=== PATIENT | female | born 1950 | race Caucasian/White ===

== ENCOUNTER 2023-06-18 15:52 | Emergency (ER) | payer MEDICARE, MEDICAID, SELFPAY ==
[2023-06-18 15:56] VITALS: BP 198/82; PULSE 69; RESP 8; TEMP 36.3; O2SAT 96; BMI 24.6
--- NOTE | 2023-06-18 16:31 | CRLHL7_ITS ---
For Patients: As a result of the Century Cures Act, medical imaging exams and procedure reports are released immediately into your electronic medical record. You may view this report before your referring provider. If you have questions, please contact your health care provider. INDICATION: Right upper quadrant abdomen pain. TECHNIQUE: Ultrasound abdomen limited. Sonographic images of the right upper quadrant were obtained using felder-scale and color Doppler images. COMPARISON: Chest CT September 2020. FINDINGS: Liver: Normal in size and echotexture. No intrahepatic biliary dilatation. Gallbladder: No stones or sludge. Partially contracted. Normal wall thickness. No pericholecystic fluid. Common bile duct: 4 mm. Pancreas: Unremarkable where visualized. Right kidney: Normal in size. Normal echotexture and cortex. No shadowing stones, or hydronephrosis. Vasculature: Proximal abdominal aorta and IVC are unremarkable. IMPRESSION: Unremarkable right upper quadrant ultrasound. Dictated by Richard Greenwood MD @ 06/18/2023 5:51:22 PM (Electronically Signed)
--- NOTE | 2023-06-18 16:32 | ED.GENADULT ---
HPI - General Adult General Chief complaint: Rib Pain Stated complaint: Under the rib pain Time Seen by Provider: 06/18/23 15:54 History of Present Illness HPI narrative: This 72-year-old female comes in reporting pain in her right upper quadrant. She states that this pain began almost about a week ago and 5 days ago she went into a different emergency department where a CT scan of the abdomen and pelvis was completed. She was found to have appendicitis and had her appendix removed at [facility] 5 days ago. She states that the pain in her right upper quadrant resumed about 3 days ago. She does not report any injury event or strenuous activity. She does not have any shortness of breath, nausea, vomiting, fever, or diarrhea. She last ate a meal last evening. Related Data Home Medications Medication Instructions Recorded Confirmed atenolol 50 mg tablet 50 mg PO BID 06/18/23 06/18/23 Allergies Allergy/AdvReac Type Severity Reaction Status Date / Time bupropion [From Wellbutrin] Allergy Verified 06/18/23 16:03 celecoxib [From Celebrex] Allergy Verified 06/18/23 16:03 cerivastatin [From Baycol] Allergy Verified 06/18/23 16:03 citalopram [From Celexa] Allergy Verified 06/18/23 16:03 enalapril Allergy Verified 06/18/23 16:03 glucosamine Allergy Verified 06/18/23 16:03 ibuprofen Allergy Verified 06/18/23 16:00 lisinopril Allergy Verified 06/18/23 16:03 simvastatin [From Zocor] Allergy Verified 06/18/23 16:03 Review of Systems Status of ROS: Reports: 10 or more systems reviewed and unremarkable except as noted in History and below Narrative: Constitutional: No fevers, no weight gain or loss. Eyes: No discharge. No vision changes. HENT: No congestion, no sore throat, no ear pain. 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 Cardiovascular: No chest pain, no palpitations. Respiratory: No shortness of breath, no wheezes, no cough. Gastrointestinal: No vomiting, no diarrhea. Genitourinary: No dysuria, no hematuria. Musculoskeletal: Normal range of motion. Skin: No rashes, no pruritis. Neurological: No dizziness, weakness, sensory change, speech change. Endo/Heme/Allergies: No bruising or bleeding. No polydipsia. Pysch: no suicidality, no anxiety, no insomnia. All other systems reviewed and are negative. Exam Narrative: Exam Narrative: Constitutional: Well-developed, well-nourished, no acute distress. HEENT: Normocephalic, atraumatic. Neck: Normal range of motion. Nontender. Supple. Heart: Regular. No murmurs. Normal rate. Intact distal pulses. Lungs: Clear to auscultation. No chest discomfort. No wheezes, rhonchi, or rales. Abdomen: Normal bowel sounds. Tenderness when palpating in the right upper quadrant. No rebound tenderness. Genitalia: Deferred. Back: No midline tenderness. Normal range of motion. Extremities: Normal range of motion. No injury. Skin: Intact. No rash. Warm. No erythema or pallor. Neurologic: No altered sensation. No weakness. Alert and oriented. Psychiatric: No suicidality. No anxiety or depression. No insomnia. Nursing notes and vitals signs are reviewed. Const: Vital Signs, click to edit/add: Vital Signs - 24 hr 06/18/23 15:56 Temperature 97.3 F L Pulse Rate [Right Pulse Oximeter] 69 Respiratory Rate 8 L Blood Pressure [Ri ght Upper Arm] 198/82 H Pulse Oximetry 96 Oxygen Delivery Me thod Room Air Course Vital Signs Vital signs: Initial Vital Signs Temperature 97.3 F L 06/18/23 15:56 Temperature Source Temporal Artery Scan 06/18/23 15:56 Pulse Rate 69 06/18/23 15:56 Respiratory Rate 8 L 06/18/23 15:56 Blood Pressure 198/82 H 06/18/23 15:56 Blood Pressure Mean 120 H 06/18/23 15:56 Blood Pressure Position Sitting 06/18/23 15:56 Pulse Oximetry 96 06/18/23 15:56 Oxygen Delivery Method Room Air 06/18/23 15:56 Vital Signs Temperature 97.3 F L 06/18/23 15:56 Pulse Rate 69 06/18/23 15:56 Respiratory Rate 8 L 06/18/23 15:56 Blood Pressure 198/82 H 06/18/23 15:56 Pulse Oximetry 96 06/18/23 15:56 Oxygen Delivery Method Room Air 06/18/23 15:56 Temperature 97.3 F L 06/18/23 15:56 Pulse Rate 69 06/18/23 15:56 Respiratory Rate 8 L 06/18/23 15:56 Blood Pressure 198/82 H 06/18/23 15:56 Pulse Oximetry 96 06/18/23 15:56 Oxygen Delivery Method Room Air 06/18/23 15:56 Medical Decision Making MDM Narrative Medical decision making narrative: This patient did have an appendectomy about 5 days ago and comes in reporting some right upper quadrant pain that is reproducible when moving in certain positions. She does not have any fever or abnormal vital signs. Her blood pressure is elevated currently. She had a CT scan within the last week with normal findings other than the evidence of appendicitis. She states that her last meal was last evening. I attempted a bedside ultrasound view of her gallbladder which for me was a difficult time finding the gallbladder. I then had the restrike hammer operator perform the same study and she reports that it was rather contracted and near a gas bubble in a bowel. There is no sign of abnormality on ultrasound exam. This patient's symptoms are likely musculoskeletal or possibly pain related to her bowels. I did offer further studies including lab and imaging. The patient recently had these studies with negative findings other than the appendicitis. She declined any further study at this time. She is aware of signs or symptoms that would indicate a need for return and re-evaluation. Discharge Plan Discharge Clinical Impression: Abdominal pain Patient Disposition: Home, Self-Care Condition: Unchanged Additional Instructions: continue current plans. Use pain medicine as needed and directed. Activity as tolerated. Follow up with MD or return if symptoms are worsening. Prescriptions: No Action atenolol 50 mg tablet 50 mg PO BID Follow Up/Referrals: Soumya Qauch DO [Primary Care Provider] - Stand Alone Forms: [employer] Info Instructions
[2023-06-18 17:29] VITALS: BP 196/105; PULSE 72; RESP 20
== END 2023-06-18 17:30 | disposition home or self-care (01) ==
LOC: ED 17:16
PROVIDERS: Emergency Provider Emergency Medicine Emergency Medical Services; PCP Family Medicine
DX: R10.11 Right upper quadrant pain (principal)
CPT/HCPCS: 76705; 99283; 99284

== ENCOUNTER 2023-10-19 11:44 | Outpatient (CLI) | payer MEDICARE, MEDICAID, SELFPAY | END 2023-10-19 11:45 | disposition home or self-care (01) | LOC: AMB 10-21 09:29 | PROVIDERS: PCP Family Medicine; Visit Provider Family Medicine | DX: I48.91 Unspecified atrial fibrillation (principal); R06.09 Other forms of dyspnea | CPT/HCPCS: A0425; A0427 ==

== ENCOUNTER 2023-11-21 21:20 | Outpatient (CLI) | payer MEDICARE, MEDICAID, SELFPAY | END 2023-11-21 21:21 | disposition home or self-care (01) | LOC: AMB 11-23 10:56 | PROVIDERS: PCP Family Medicine; Visit Provider Family Medicine | DX: R10.9 Unspecified abdominal pain (principal) | CPT/HCPCS: A0425; A0427 ==

== ENCOUNTER 2023-12-01 11:21 | Emergency (ER) | payer MEDICARE, MEDICAID, SELFPAY ==
[2023-12-01 11:27] VITALS: BP 168/84; PULSE 82; RESP 20; TEMP 36.6; O2SAT 97
--- NOTE | 2023-12-01 11:48 | CRLHL7_ITS ---
For Patients: As a result of the Century Cures Act, medical imaging exams and procedure reports are released immediately into your electronic medical record. You may view this report before your referring provider. If you have questions, please contact your health care provider. INDICATION: COUGH TECHNIQUE: Chest 2 views. COMPARISON: Chest radiograph report on 11/21/2023 and multiple prior exams FINDINGS: The cardiomediastinal silhouette is within normal limits. No focal airspace consolidation, pleural effusion, or pneumothorax. No acute osseous abnormality. IMPRESSION: No acute cardiopulmonary process. Dictated by Chris Hillman MD @ 12/01/2023 12:44:45 PM (Electronically Signed)
--- NOTE | 2023-12-01 11:49 | ED.GENADULT ---
HPI - General Adult General Chief complaint: Shortness of Breath/Dyspnea Stated complaint: Bronchitis, Covid likely, short of breath Time Seen by Provider: 12/01/23 11:26 History of Present Illness HPI narrative: This 73-year-old female comes in reporting cough for the past 10 or more days. She did test positive for COVID about 10 days ago and did complete a 5 day course of prednisone. She comes in today stating that her clinic told her to come in here to get an x-ray so she can get an antibiotic. She arrives here with normal vital signs. She reports a productive cough. Related Data Home Medications Medication Instructions Recorded Confirmed apixaban 5 mg tablet (Eliquis) 5 mg PO BID 11/14/23 11/14/23 aspirin 81 mg tablet,delayed 81 mg PO QDAY 11/14/23 11/14/23 release (Adult Aspirin Regimen) carvedilol 12.5 mg tablet 12.5 mg PO BID 11/14/23 11/14/23 sotalol 80 mg tablet (Sotalol AF) 80 mg PO BID 11/14/23 11/14/23 torsemide 20 mg tablet 20 mg PO DAILY 11/14/23 11/14/23 Previous Rx's Medication Instructions Recorded azithromycin 250 mg tablet 250 mg PO DAILY #6 tabs 12/01/23 (Zithromax Z-Jose) Allergies Allergy/AdvReac Type Severity Reaction Status Date / Time bupropion [From Wellbutrin] Allergy Verified 11/14/23 09:46 celecoxib [From Celebrex] Allergy Verified 11/14/23 09:46 cerivastatin [From Baycol] Allergy Verified 11/14/23 09:46 citalopram [From Celexa] Allergy Verified 11/14/23 09:46 enalapril Allergy Verified 11/14/23 09:46 glucosamine Allergy Verified 11/14/23 09:46 ibuprofen Allergy Verified 11/14/23 09:46 lisinopril Allergy Verified 11/14/23 09:46 simvastatin [From Zocor] Allergy Verified 11/14/23 09:46 Review of Systems Status of ROS: Reports: 10 or more systems reviewed and unremarkable except as noted in History and below Narrative: Constitutional: No fevers, no weight gain or loss. Eyes: No discharge. No vision changes. HENT: No congestion, no sore throat, no ear pain. Cardiovascular: No chest pain, no palpitations. Respiratory: No shortness of breath, no wheezes. Productive cough. Gastrointestinal: No abdominal pain, no vomiting, no diarrhea. Genitourinary: No dysuria, no hematuria. Musculoskeletal: Normal range of motion. Skin: No rashes, no pruritis. Neurological: No dizziness, weakness, sensory change, speech change. Endo/Heme/Allergies: No bruising or bleeding. No polydipsia. Pysch: no suicidality, no anxiety, no insomnia. All other systems reviewed and are negative. PFSH PFS Social History Smoking Status: Former smoker What tobacco products do you use: cigarettes Smoking quit date/years: >15 years ago Do you use any of these nicotine containing products: None How often do you have a drink containing alcohol: never How often do you have six or more drinks on one occasion: Never AUDIT-C Alcohol total score: 0 Non-prescribed substance use: denies use Exam Narrative: Exam Narrative: Constitutional: Well-developed, well-nourished, no acute distress. HEENT: Normocephalic, atraumatic. Neck: Normal range of motion. Nontender. Supple. Heart: Regular. No murmurs. Normal rate. Intact distal pulses. Lungs: Clear to auscultation. No chest discomfort. No wheezes, rhonchi, or rales. Abdomen: Normal bowel sounds. Nontender. No rebound tenderness. Genitalia: Deferred. Back: No midline tenderness. Normal range of motion. Extremities: Normal range of motion. No injury. Skin: Intact. No rash. Warm. No erythema or pallor. Neurologic: No altered sensation. No weakness. Alert and oriented. Psychiatric: No suicidality. No anxiety or depression. No insomnia. Nursing notes and vitals signs are reviewed. Const: Vital Signs, click to edit/add: Vital Signs - 24 hr 12/01/23 11:27 Temperature 97.8 F Pulse Rate [Pulse Oximeter] 82 Respiratory Rate 20 Blood Pressure [Ri ght Upper Arm] 168/84 H Pulse Oximetry 97 Oxygen Delivery Me thod Room Air Course Vital Signs Vital signs: Initial Vital Signs Temperature 97.8 F 12/01/23 11:27 Temperature Source Temporal Artery Scan 12/01/23 11:27 Pulse Rate 82 12/01/23 11:27 Respiratory Rate 20 12/01/23 11:27 Blood Pressure 168/84 H 12/01/23 11:27 Blood Pressure Mean 112 H 12/01/23 11:27 Blood Pressure Position Sitting 12/01/23 11:27 Pulse Oximetry 97 12/01/23 11:27 Oxygen Delivery Method Room Air 12/01/23 11:27 Vital Signs Temperature 97.8 F 12/01/23 11:27 Pulse Rate 82 12/01/23 11:27 Respiratory Rate 20 12/01/23 11:27 Blood Pressure 168/84 H 12/01/23 11:27 Pulse Oximetry 97 12/01/23 11:27 Oxygen Delivery Method Room Air 12/01/23 11:27 Temperature 97.8 F 12/01/23 11:27 Pulse Rate 82 12/01/23 11:27 Respiratory Rate 20 12/01/23 11:27 Blood Pressure 168/84 H 12/01/23 11:27 Pulse Oximetry 97 12/01/23 11:27 Oxygen Delivery Method Room Air 12/01/23 11:27 Medical Decision Making MDM Narrative Medical decision making narrative: This 73-year-old female is had productive cough for more than a week and a half and comes in with high hopes that she would get an antibiotic. She arrives with normal vital signs. Her exam is also reassuring. I did do chest x-ray which returns with no evidence of acute pulmonary disease. I explained to her that her symptoms are likely due to a virus which does not respond to an antibiotic. She was positive for COVID 10 days ago. She is still thinking that an antibiotic is going to help her. I stated that we typically do not use an antibiotic for treating these symptoms but agreed to provide prescription for Zithromax. I advised her to use [id number] cough medicine. She states that she did take Mucinex DM and it did not help her. Imaging Data Chest x-ray: Radiologist's impression: No acute cardiopulmonary process. Discharge Plan Discharge Clinical Impression: Acute upper respiratory infection Patient Disposition: Home, Self-Care Condition: Stable Additional Instructions: Take medication as prescribed. Use [id number] medicines also as needed and directed. Follow up with MD return if worsening. Prescriptions: New azithromycin [Zithromax Z-Jose] 250 mg tablet 250 mg PO DAILY Qty: 6 0RF No Action carvedilol 12.5 mg tablet 12.5 mg PO BID torsemide 20 mg tablet 20 mg PO DAILY Eliquis 5 mg tablet 5 mg PO BID sotalol [Sotalol AF] 80 mg tablet 80 mg PO BID aspirin [Adult Aspirin Regimen] 81 mg tablet,delayed release (DR/EC) 81 mg PO QDAY Follow Up/Referrals: Soumya Quach DO [Primary Care Provider] - Stand Alone Forms: [facility] Info Instructions
--- NOTE | 2023-12-01 13:06 | ED.NURSE ---
Assumed care of pt @ 1300. Report received from previous nurse, Markos Gamez All questions answered.
== END 2023-12-01 13:29 | disposition home or self-care (01) ==
PROVIDERS: Emergency Provider Emergency Medicine Emergency Medical Services; PCP Family Medicine
DX: J06.9 Acute upper respiratory infection, unspecified (principal)
CPT/HCPCS: 71046; 99283; 99284

== ENCOUNTER 2023-12-24 08:30 | Outpatient (CLI) | payer MEDICARE, MEDICAID, SELFPAY | END 2023-12-24 08:31 | disposition home or self-care (01) | LOC: AMB 12-25 17:36 | PROVIDERS: PCP Family Medicine; Visit Provider Family Medicine | DX: I49.9 Cardiac arrhythmia, unspecified (principal) | CPT/HCPCS: A0425; A0427 ==

== ENCOUNTER 2024-10-20 14:36 | Outpatient (CLI) | payer MEDICARE, MEDICAID, SELFPAY | END 2024-10-20 14:37 | disposition home or self-care (01) | LOC: AMB 10-21 03:10 | PROVIDERS: PCP Family Medicine; Visit Provider Emergency Medicine Emergency Medical Services | DX: R10.9 Unspecified abdominal pain (principal); I49.9 Cardiac arrhythmia, unspecified; I48.91 Unspecified atrial fibrillation | CPT/HCPCS: A0425; A0427 ==

== ENCOUNTER 2025-01-09 21:34 | Outpatient (CLI) | payer MEDICARE, MEDICAID, SELFPAY | END 2025-01-09 21:35 | disposition home or self-care (01) | PROVIDERS: PCP Family Medicine; Visit Provider Emergency Medicine | DX: R06.09 Other forms of dyspnea (principal) | CPT/HCPCS: A0425; A0427 ==

== ENCOUNTER 2025-01-09 21:56 | Emergency (ER) | payer MEDICARE, MEDICAID, SELFPAY ==
--- OUTSIDE RECORDS SUMMARY | 2025-01-09 21:59 | XMS_ITS | Clinical Summary ---
Author Organization [facility] Address [address] [place] [address] Care Team Providers Care Property Management Supervisor Name Role Phone Soumya Quahc DO Primary Care Provider Dat Laura RN Unavailable [phone] Lauren Rodriguez RN Unavailable [phone] Alba Elizabeth PharmD Unavailable [phone] Allergies Active Allergy Reactions Criticality Noted Date Comments Amitriptyline 09/13/2008 Face numb and ringing in the ears, blurred vision Amlodipine Other - Describe In Comment Field 09/19/2019 bleeding gums. swollen feet. Celecoxib 07/20/2008 High blood pressure Cerivastatin *Unknown 06/18/2023 Citalopram *Unknown 06/18/2023 Enalapril *Unknown 06/18/2023 Glucosamine Chest Pain 12/03/2009 Ibuprofen Rash 06/18/2023 Lisinopril 08/23/2008 Rapid heartrate Etodolac causes blood in stools Hydroxychloroquine intolerance-causes abdominal cramps Bupropion Chest Pain Simvastatin intolerance-causes dizziness Medications melatonin 3 mg tablet Take 1 tablet by mouth at bedtime. 0 09/12/20 14 Active cyanocobalamin (VITAMIN B-12) 500 mcg tablet Take 2 tablets by mouth once daily. 0 03/19/20 20 Active ascorbic acid, vitamin C, (Vitamin C) 1,000 mg tablet Take 1,000 mg by mouth two times daily. Active [id number] sh Oil (Fish OiL) 1,000 mg (120 mg-180 mg) cap Take 1 Capsule by mouth once daily. Active Garlic (garlic oiL) 1,000 mg cap Take 1,000 mg by mouth two times daily. Active magnesium oxide 250 mg magnesium tablet Take 250 mg by mouth once daily. Active multivitamin (MVI) tablet Take 1 Tablet by mouth once daily. Active niacin 100 mg tablet Take 100 mg by mouth once daily. Active POTASSIUM-99 ORAL Take 3 Tablets by mouth once daily. Active vitamin e 400 unit capsule Take 400 units by mouth once daily. Active Zinc Sulfate 50 mg zinc (220 mg) tablet Take 220 mg by mouth once daily. Active Cranberry 400 mg capsule Take 1 Capsule by mouth once daily. Active folic acid 400 mcg tablet Take 3 Tablets (1,200 mcg) by mouth once daily. 11/25/19 24 Active calcium carbonate (Calcium 600) 600 mg calcium (1,500 mg) tablet Take 600 mg by mouth two times daily with meals. Active aspirin enteric coated (ECOTRIN) 325 mg tabletIndications: Osteoarthritis, unspecified osteoarthritis type, unspecified site Take 2 Tablets (650 mg) by mouth every 4 hours if needed for Pain. Takes 8 tablets total daily for her arthritis pain. Hold x 5 days post-pacemaker implant, ok to resume on 10/28/2024 10/28/20 24 Active torsemide (DEMADEX) 10 mg tabletIndications: Heart failure with preserved ejection fraction, unspecified HF chronicity (HC) Use daily as needed for weight gain >3 lbs in 24 hours or increased swelling or shortness of breath 90 Tablet 3 10/26/20 24 Active rOPINIRole (REQUIP) 0.25 mg tabletIndications: RLS (restless legs syndrome) Take 2 tablets in am and 1 tablet in afternoon and 2 tablets at bedtime. 360 Tablet 3 10/26/20 24 Active atenoloL (TENORMIN) 50 mg tabletIndications: HTN (hypertension) Take 1-2 Tablets (50-100 mg) by mouth once daily. 90 Tablet 12/12/19 25 Active losartan (COZAAR) 50 mg tabletIndications: Heart failure with preserved ejection fraction, unspecified HF chronicity (HC),HTN (hypertension) Take 1 Tablet (50 mg) by mouth once daily. 12/12/19 25 Active albuterol HFA (Proventil HFA) 90 mcg/actuation inhalerIndications :Cough, unspecified type,Shortness of breath,COVID-19,Ch ronic obstructive pulmonary disease, unspecified COPD type (HC) Inhale 2 Puffs by mouth 4 times daily if needed for Shortness Of Breath. 1 Each 12/21/19 25 Active magnesium glycinate, bulk, 10 % powd Take 1 of the 500 mg capsules by mouth at bedtime. 01/03/20 25 Active acetaminophen (Tylenol Extra Strength) 500 mg tablet Take 2 Tablets (1,000 mg) by mouth every 6 hours. Max acetaminophen dose: 4000mg in 24 hrs. 01/03/20 25 Active ferrous sulfate (Iron) 325 mg (65 mg iron) tablet Take 1 tablet by mouth twice weekly (every 3 days or so). 01/03/20 25 Active cholecalciferol (Vitamin D-3) 2,000 unit capsule Take 1 Capsule (2,000 units) by mouth once daily. 01/03/20 25 Active cholecalciferol (VITAMIN D) 1,000 unit capsule Take 1 capsule by mouth 2 times daily. 0 07/14/20 16 025 Disconti nued(*Me dication adjustme nt) albuterol HFA (Proventil HFA) 90 mcg/actuation inhalerIndications :Cough, unspecified type,Shortness of breath,COVID-19,Ch ronic obstructive pulmonary disease, unspecified COPD type (HC) Inhale 2 Puffs by mouth 4 times daily if needed for Shortness Of Breath. 1 Each 11/22/19 24 025 Disconti nued(Reo rder (E-cance l not sent)) ferrous sulfate, 65 mg elemental, (Iron) tablet Take 325 mg by mouth once daily with a meal. once a week 025 Disconti nued(*Me dication adjustme nt) acetaminophen (Tylenol Extra Strength) 500 mg tablet Take 500 mg by mouth every 6 hours if needed. Max acetaminophen dose: 4000mg in 24 hrs. 025 Disconti nued(*Me dication adjustme nt) apixaban (ELIQUIS) 5 mg tabletIndications: prevent thromboembolism in chronic atrial fibrillation Take 0.5 Tablets (2.5 mg) by mouth two times daily. 90 Tablet 3 07/25/20 24 025 Disconti nued(*Me d complete /Regimen complete /Level of care change) losartan (COZAAR) 50 mg tabletIndications: HTN (hypertension),Hea rt failure with preserved ejection fraction, unspecified HF chronicity (HC) Take 2 Tablets (100 mg) by mouth once daily. 180 Tablet 3 07/25/20 24 025 Disconti nued(*Me dication adjustme nt) carvediloL (COREG) 12.5 mg tabletIndications: Atrial fibrillation with RVR (HC) Take 1 Tablet (12.5 mg) by mouth two times daily. 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 03/28/2024 (HFpEF) heart failure with preserved ejection fr action 10/14/2023 Atrial fibrillation with RVR 10/08/2023 Primary osteoarthritis of right hip 06/26/2023 Acute appendicitis 06/14/2023 Kidney lesion, napaimute, right 06/14/2023 Stress incontinence, female 03/02/2023 Balance problem 10/07/2019 Squamous cell cancer of tongue 11/08/2018 Leukoplakia of tongue 07/17/2016 Gout, unspecified 08/28/2011 Overview (09/08/2013): Right great toe Facial twitching 08/28/2011 Tobacco use disorder 12/03/2009 Major depressive disorder, recurrent episode, un specified 07/20/2008 Generalized osteoarthrosis, unspecified site 02/2008 Overview (09/08/2013): every where Assessment & Plan (08/02/2009 1:51 PM CDT): Currently on disability due to thumb arthritis HTN (hypertension) 07/20/2008 Overview (01/29/2010): Updated by system to replace inactive record Other and unspecified hyperlipidemia Lichen planus Overview (08/30/2009): Biopsy proven prednisdone helped better Resolved Problems Problem Noted Date Diagnosed Date Resolved Date Unspecified essential hypertension 10/18/2008 Encounters Date Type Department Care Team Description 01/04/2025 3:00 PM CDL DEDICATED TRUCK DRIVER Ancillary Procedure [facility] [address] [place] [address] Arrived 01/04/2025 2:30 PM CDL DEDICATED TRUCK DRIVER Ancillary Procedure [facility] [address] [place] [address] Arrived 01/04/2025 Travel 01/03/2025 2:00 PM CDL DEDICATED TRUCK DRIVER Pharmacist Medication Management [address] [place] [address] Alba Elizabeth, CedricD Pharmacist Medication Management (Initial Comprehensive Medication Review - Phone Visit ) 12/12/2024 3:05 PM CDL DEDICATED TRUCK DRIVER Office Visit [facility] [address] [place] [address] Soumya Quach DO Medication Management (eliquis, carvedilol, losartan ) 12/12/2024 1:00 PM CDL DEDICATED TRUCK DRIVER Ancillary Procedure [address] [address] 12/12/2024 Travel 12/08/2024 2:50 PM CDL DEDICATED TRUCK DRIVER Telemedicine [facility] [address] [place] [phone] Lauren Patel NP Side Effect; Telehealth 12/08/2024 Travel 12/07/2024 Travel 12/05/2024 Patient Outreach [facility] Care Management - Care Management Navigation/[facility] [address] [place] [address] Judy Maynard Medication Management (CMR - Covered - ACO) 11/18/2024 Telephone [facility] [address] [place] [address] Ling Thayer DO Medication Management 11/17/2024 Telephone [facility] [address] [place] [address] Soumya Quach DO Outside Order (CT) 11/15/2024 Telephone [facility] [address] [place] [address] Ling Thayer DO clarify 11/11/2024 1:00 PM CDL DEDICATED TRUCK DRIVER Ancillary Procedure [facility] [address] [place] [address] 11/11/2024 12:45 PM CDL DEDICATED TRUCK DRIVER Orders Only [facility] [address] [place] [address] Lab, [facility] 11/11/2024 Travel 10/26/2024 11:00 AM CDL DEDICATED TRUCK DRIVER Office Visit [facility] [address] [place] [address] Ling Thayer DO Hospital F/U (A-fib RVR, pacemaker placed - continues to have weakness/fatigue) 10/26/2024 Travel 10/24/2024 Patient Outreach [facility] [address] [place] [address] Kate Schwartz, RN Primary RN Care Management; Hospital F/U (LACE 69) 10/22/2024 9:39 AM CDL DEDICATED TRUCK DRIVER Anesthesia Event [facility] [address] [place] [id number] Pedro Schultz MD 10/22/2024 Travel 10/20/2024 3:48 PM CDL DEDICATED TRUCK DRIVER - 10/23/2024 4:05 PM CDL DEDICATED TRUCK DRIVER Hospital Encounter [facility] [address] [address] Haely Collins MD [facility] [place] Hospital[facility] Of [facility], RAFFAELE Bhatti Hand, Wen Claudio MD Atrial flutter with rapid ventricular response (HC) (Primary Dx); Paroxysmal ventricular tachycardia (HC); Acute on chronic heart failure with preserved ejection fraction (HFpEF) (HC); Shortness of breath; Epigastric pain; Nausea; Cough, unspecified type; Squamous cell cancer of tongue (HC); 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 neck (HC); HTN (hypertension); On apixaban therapy; ST segment abnormality; Palpitations; Anemia, unspecified type; Hyponatremia; Elevated brain natriuretic peptide (BNP) level; Hypoalbuminemia; Elevated serum alkaline phosphatase level; Transaminitis; Osteoarthritis, unspecified osteoarthritis type, unspecified site; Community acquired pneumonia, unspecified laterality Discharge Disposition: Home Self Care 10/20/2024 Travel from Last 3 Months Immunizations Name Administration Dates Next Due Hepatitis B (Adult) 01/23/1998,09/06/1997,1996 Influenza, IIV3 (Age 6-35 mos) 08/28/2011 Influenza, IIV3 (Age >=3 years) 08/23/20 13,09/07/2012,08/28/2011,2008,08/23/2008,09/06/2003 Pneumococcal Poly,23-Valent (Pneumovax) 11/01/1997 Td (Age >=7 Years) 12/09/1996 Tdap 08/23/2008 Family History Medical History Relation Name Comments Good Health Brother 3 Good Health Brother 4 1/2 Other Father d70, emphysema Hypertension Mother Good Health Sister 2 1/2 Relation Name Status Comments Brother 1 Alive Brother 2 Alive Brother 3 Brother 4 Father Mother Alive Sister 1 Alive Sister 2 Social History Tobacco Use Types Packs/Day Years Used Date Smoking Tobacco: Former Cigarettes 0.3 44 Smokeless Tobacco: Never Tobacco Cessation:Counseling Given: Yes Comments:vape 04/25/19 Alcohol Use Standard Drinks/Week Comments No 0 (1 standard drink = 0.6 oz pur e alcohol) PHQ-2 Answer Date Recorded PHQ-2 TOTAL SCORE 0 07/25/2024 Social Connections Answer Date Recorded Do you often feel lonely or isolated from those around you? 0 10/20/2024 Financial Resource Strain Answer Date R ecorded Difficulty of Paying Living Expenses 3 10/20/2024 Difficulty of Paying Living Expenses Not on file 10/20/2024 Food Insecurity Answer Date Recorded Do you worry your food will run out before you are able to buy more? 1 10/20/2024 Transportation Needs Answer Date Record ed Does lack of transportation keep you from medica l appointments? 1 10/20/2024 Does lack of transportation keep you from work, meetings or getting things that you need? 1 10/20/2024 Housing Stability Answer Date Recorded What is your housing situation today? 1 10/20/2024 Interpersonal Safety Answer Date Record ed Are you being hit, kicked, p ushed or yelled at (see row info)? No 10/20/2024 Interpersonal Safety Abuse 12 - 18 Not on file 10/20/2024 Interpersonal Safety Ambulatory Vulnerability No t on file 10/20/2024 Utilities Answer Date Recorded Do you have trouble paying f or utilities (for example, heat, electricity, water, phone)? 1 10/20/2024 Comments No Sex and Gender Information Value Date Recorded Sex Assigned at Not on file Legal Sex Female 6:29 AM CDL DEDICATED TRUCK DRIVER Gender Identity Not on file Sexual Orientation Not on file Obstetrics History Para Term AB IAB SAB Ectopic Multiple Livin g Live Births 6 6 6 6 Date Outcome GA Total Labor Labor//3rd Weight Sex Type Anes PTL Jennyfer A1 A5 Name Clin Term Term Term Term Term Term Last Filed Vital Signs Vital Sign Reading Time Taken Comments Blood Pressure 186/96 12/12/2024 2:51 PM CDL DEDICATED TRUCK DRIVER Pulse 93 12/12/2024 2:51 PM CDL DEDICATED TRUCK DRIVER Temperature 36.4 C (97.5 F) 10/23/2024 2:12 PM CDL DEDICATED TRUCK DRIVER Respiratory Rate 16 10/23/2024 2:12 PM CDL DEDICATED TRUCK DRIVER Oxygen Saturation 97% 12/12/2024 2:51 PM CDL DEDICATED TRUCK DRIVER Inhaled Oxygen Concentration - - Weight 68 kg (150 lb) 12/12/2024 2:51 PM CDL DEDICATED TRUCK DRIVER Height 172.7 cm (5' 8) 10/20/2024 3:54 PM CDL DEDICATED TRUCK DRIVER Body Mass Index 22.81 10/20/2024 3:54 PM CDL DEDICATED TRUCK DRIVER Plan of Treatment Upcoming Encounters Date Type Department Care Team (Late st Contact Info) Description 01/11/2025 2:40 PM CDL DEDICATED TRUCK DRIVER Office Visit [facility] [address] [place] [address] RamireztSoumya, [address] [place] [address] 01/24/2025 1:30 PM CDT Cardiac Device Check [facility] [address] [place] [phone] Health Maintenance Due Date Last Done Comments COVID-19 vaccine series (#1) 1955 Hepatitis C screening for ag e 18-79 1966 Zoster (shingles) series for age 50+ (1 of 2) 1967 Pneumococcal series for age 50+ (2 of 2 - PCV) 11/01/1998 11/01/1997 Tetanus booster 08/23/2018 08/23/2008, 12/09/1996 RSV vaccine for adults or (1 - 1-dose 75+ series) 2023 BMI (ht and wt on same day) for age 18+ 06/26/2024 06/26/2023, 09/21/2020, 09/19/2019, Additional history exists Influenza for age 65+ 07/17/2024 08/23/2013 , 09/07/2012, 08/28/2011, Additional history exists Depression screening for age 12+ 07/25/2025 07/25/2024, 07/25/2024, 06/26/2023, Additional history exists Medicare Wellness for age 65+ 07/26/2025, 06/26/2023, 09/26/2021, Additional history exists Tdap Completed 08/23/2008 DEXA/DXA scan for age 65+ Completed 2018, 08/28/2011, 08/02/2009 Procedures Procedure Name Priority Date/Time Associated Diagnosis Comments XR SPINE LUMBAR 2 VIEWS Routine 01/04/2025 2:30 PM CDL DEDICATED TRUCK DRIVER Chronic midline low back pain with right-sided sciatica XR HIP 1 VIEW W PELVIS RIGHT Routine 01/04/2025 2:30 PM CDL DEDICATED TRUCK DRIVER Primary osteoarthritis of right hip CT CHEST WO Routine 12/12/2024 1:12 PM CDL DEDICATED TRUCK DRIVER Squamous cell cancer of tongue (HC) Abnormal CT scan of lung CT CHEST WO Routine 11/11/2024 1:15 PM CDL DEDICATED TRUCK DRIVER Abnormal chest CT BASIC METABOLIC PANEL Routine 11/11/2024 12:47 PM CDL DEDICATED TRUCK DRIVER Hyponatremia CBC WITH AUTO DIFFERENTIAL Routine 11/11/2024 12:47 PM CDL DEDICATED TRUCK DRIVER Fatigue, unspecified type VITAMIN D 25 (DEFICIENCY) Routine 11/11/2024 12:47 PM CDL DEDICATED TRUCK DRIVER Fatigue, unspecified type Vitamin D deficiency CT CHEST W Routine 10/23/2024 11:39 AM CDL DEDICATED TRUCK DRIVER PACER NE DUAL CHAMBER WO REPROG Routine 10/23/2024 10:47 AM CDL DEDICATED TRUCK DRIVER EKG 12 LEAD Early AM 10/23/2024 9:00 AM CDL DEDICATED TRUCK DRIVER BASIC METABOLIC PANEL Early AM 10/23/2024 8:35 AM CDL DEDICATED TRUCK DRIVER WHITE BLOOD COUNT Early AM 10/23/2024 8:3 5 AM CDL DEDICATED TRUCK DRIVER MAGNESIUM Early AM 10/23/2024 8:35 AM CDL DEDICATED TRUCK DRIVER XR CHEST 2 VIEWS PA AND LATERAL Routine 10/23/2024 7:45 AM CDL DEDICATED TRUCK DRIVER SCAN-CARDIAC STRIP 10/23/2024 7: 01 AM CDL DEDICATED TRUCK DRIVER SCAN-CARDIAC STRIP 10/23/2024 1: 19 AM CDL DEDICATED TRUCK DRIVER SCAN-CARDIAC STRIP 10/22/2024 8: 04 PM CDL DEDICATED TRUCK DRIVER SCAN-CARDIAC STRIP 10/22/2024 2: 58 PM CDL DEDICATED TRUCK DRIVER SCAN-CARDIAC STRIP 10/22/2024 12 :05 PM CDL DEDICATED TRUCK DRIVER EP PPM Routine 10/22/2024 9:59 AM CDL DEDICATED TRUCK DRIVER SCAN-CARDIAC STRIP 10/22/2024 7: 53 AM CDL DEDICATED TRUCK DRIVER WHITE BLOOD COUNT Early AM 10/22/2024 6:1 6 AM CDL DEDICATED TRUCK DRIVER BASIC METABOLIC PANEL Early AM 10/22/2024 6:16 AM CDL DEDICATED TRUCK DRIVER MAGNESIUM Early AM 10/22/2024 6:16 AM CDL DEDICATED TRUCK DRIVER POTASSIUM Timed 10/21/2024 5:40 PM CDL DEDICATED TRUCK DRIVER ECHO TTE COMPLETE W CONTRAST STAT 10/21/2024 10:23 AM CDL DEDICATED TRUCK DRIVER EXTRA TUBE BLUE Today 10/21/2024 7:46 AM CDL DEDICATED TRUCK DRIVER PLATELET COUNT Early AM 10/21/2024 7:46 AM CDL DEDICATED TRUCK DRIVER HEMOGLOBIN Early AM 10/21/2024 7:46 AM CDL DEDICATED TRUCK DRIVER WHITE BLOOD COUNT Early AM 10/21/2024 7:4 6 AM CDL DEDICATED TRUCK DRIVER MAGNESIUM Early AM 10/21/2024 7:46 AM CDL DEDICATED TRUCK DRIVER CREATININE Early AM 10/21/2024 7:46 AM CDL DEDICATED TRUCK DRIVER POTASSIUM Early AM 10/21/2024 7:46 AM CDL DEDICATED TRUCK DRIVER SODIUM Early AM 10/21/2024 7:46 AM CDL DEDICATED TRUCK DRIVER PROCALCITONIN STAT 10/20/2024 6:31 PM CDL DEDICATED TRUCK DRIVER XR CHEST 2 VIEWS PA AND LATERAL STAT 10/20/2024 4:27 PM CDL DEDICATED TRUCK DRIVER EKG 12 LEAD STAT 10/20/2024 4:12 PM CDL DEDICATED TRUCK DRIVER EXTRA TUBE BLUE Today 10/20/2024 4:05 PM CDL DEDICATED TRUCK DRIVER TSH MONA 10/20/2024 4:04 PM CDL DEDICATED TRUCK DRIVER CBC W PLT NO DIFF STAT 10/20/2024 4:0 4 PM CDL DEDICATED TRUCK DRIVER BASIC METABOLIC PANEL STAT 10/20/2024 4:04 PM CDL DEDICATED TRUCK DRIVER LIPASE STAT 10/20/2024 4:04 PM CDL DEDICATED TRUCK DRIVER HEPATIC FUNCTION PANEL STAT 10/20/2024 4:04 PM CDL DEDICATED TRUCK DRIVER PRO-BNP STAT 10/20/2024 4:04 PM CDL DEDICATED TRUCK DRIVER MAGNESIUM STAT 10/20/2024 4:04 PM CDL DEDICATED TRUCK DRIVER XR DXA BONE DENSITY 2 SITES AXIAL Routine 09/22/2019 2:22 PM CDL DEDICATED TRUCK DRIVER Post-menopausal from Last 3 Months or Most Recently Relevant to Health Maintenance Results * XR SPINE LUMBAR 2 VIEWS (01/04/2025 2:30 PM CDL DEDICATED TRUCK DRIVER) Anatomical Region Laterality Modality LUMBAR SPINE Computed Radiogr aphy 01/05/2025 4:05 PM CDL DEDICATED TRUCK DRIVER Narrative 01/05/2025 4:05 PM CDL DEDICATED TRUCK DRIVER For Patients: As a result of the Cures Act, medical imaging exams and procedure reports are released immediately into your electronic medical record. You may view this report before your referring provider. If you have questions, please contact your health care provider. INDICATION : Pain TECHNIQUE : 2View lumbar spine FINDINGS : Advanced discogenic narrowing vacuum disc L5-S1. Multilevel advanced lumbar facet arthrosis. No compression fractures. The vertebral bodies are demineralized. AP view shows scoliosis convex right. Degenerative retrolisthesis L4-5. Arterial calcification. IMPRESSION : Advanced lumbar degenerative spondylosis Dictated by Néstor Gallegos MD @ 01/05/2025 4:05:56 PM (Electronically Signed) Procedure Note Néstor Gallegos MD - 01/05/2025 For Patients: As a result of the s Act, medical imagingexams and procedure reports are released immediately into your electronicmedical record. You may view this report before your referring provider.If you have questions, please contact your health care provider. INDICATION : Pain TECHNIQUE : 2View lumbar spine FINDINGS : Advanced discogenic narrowing vacuum disc L5-S1. Multilevel advancedlumbar facet arthrosis. No compression fractures. The vertebral bodies are demineralized. AP view shows scoliosis convex right. Degenerative retrolisthesis L4-5. Arterial calcification. IMPRESSION : Advanced lumbar degenerative spondylosis Dictated by Néstor Gallegos MD @ 01/05/2025 4:05:56 PM (Electronically Signed) Soumya Quach DO GENERAL IMAGING Final Resul t * XR HIP 1 VIEW W PELVIS RIGHT (01/04/2025 2:30 PM CDL DEDICATED TRUCK DRIVER) Anatomical Region Laterality Modality HIPS, HIPR, Pelvis Computed Radi ography 01/05/2025 4:04 PM CDL DEDICATED TRUCK DRIVER Narrative 01/05/2025 4:04 PM CDL DEDICATED TRUCK DRIVER For Patients: As a result of the s Act, medical imaging exams and procedure reports are released immediately into your electronic medical record. You may view this report before your referring provider. If you have questions, please contact your health care provider. INDICATION : Osteoarthrosis TECHNIQUE : 2View pelvis and right hip FINDINGS : Remote comparison August 2009 IMPRESSION : Significant progression of bilateral osteoarthrosis. End-stage joint space loss [id number] and large osteophytes right hip. Alignment remains anatomic. Severe arthrosis changes of the left hip. No acute or suspicious bone lesion. Atherosclerotic arterial calcification of the iliac arteries. Dictated by Néstor Gallegos MD @ 01/05/2025 4:04:03 PM (Electronically Signed) Procedure Note Néstor Gallegos MD - 01/05/2025 For Patients: As a result of the , medical imagingexams and procedure reports are released immediately into your electronicmedical record. You may view this report before your referring provider.If you have questions, please contact your health care provider. INDICATION : Osteoarthrosis TECHNIQUE : 2View pelvis and right hip FINDINGS : Remote comparison August 2009 IMPRESSION : Significant progression of bilateral osteoarthrosis. End-stage joint spaceloss [id number] and large osteophytes right hip. Alignment remainsanatomic. Severe arthrosis changes of the left hip. No acute or suspicious bone lesion. Atherosclerotic arterial calcification of the iliac arteries. Dictated by Néstor Gallegos MD @ 01/05/2025 4:04:03 PM (Electronically Signed) Soumya Quach DO GENERAL IMAGING Final Resul t * CT CHEST WO (12/12/2024 1:12 PM CDL DEDICATED TRUCK DRIVER) Only the most recent of2 resultswithin the time period is included. Anatomical Region Laterality Modality CHEST, THORAX, HEART Computed To mography 12/12/2024 2:59 PM CDL DEDICATED TRUCK DRIVER Narrative 12/12/2024 2:59 PM CDL DEDICATED TRUCK DRIVER For Patients: As a result of the s Act, medical imaging exams and procedure reports are released immediately into your electronic medical record. You may view this report before your referring provider. If you have questions, please contact your health care provider. Indication: Squamous cell cancer of tongue Technique: CT CHEST WO Please note that all CT scans at this facility use dose modulation, iterative reconstruction, and/or weight-based dosing when appropriate to reduce radiation dose to as low as reasonably achievable. Comparison: 11/11/2024 Findings: Mediastinal adenopathy again noted which is slightly decreased in size when compared to the prior study. A precarinal lymph node measured 1.5 cm in AP dimension on the prior study and measures 1.3 cm on the current exam. Cardiomegaly. No adrenal nodule. Atherosclerotic changes. Biapical pleural-parenchymal thickening and emphysema. Decreased size of irregular nodular density within the left upper lobe compared to the prior study, previously measuring 1.2 cm, currently measuring 1.0 cm, series 9, image 32. Additional ill-defined nodular densities elsewhere within the left upper lobe are likely similar. Mild fibrotic changes are also present. No fracture. Impression: Slight decreased size of mediastinal adenopathy and irregular left upper lobe nodule. Remainder of the pulmonary parenchyma is similar. Please note that all CT scans at this facility use dose modulation, iterative reconstruction, and/or weight-based dosing when appropriate to reduce radiation dose to as low as reasonably achievable. Dictated by Richard More MD @ 12/12/2024 2:59:05 PM (Electronically Signed) Procedure Note Richard More MD - 12/12/2024 For Patients: As a result of the Cures Act, medical imagingexams and procedure reports are released immediately into your electronicmedical record. You may view this report before your referring provider.If you have questions, please contact your health care provider. Indication: Squamous cell cancer of tongue Technique: CT CHEST WO Please note that all CT scans at this facility use dose modulation,iterative reconstruction, and/or weight-based dosing when appropriate toreduce radiation dose to as low as reasonably achievable. Comparison: 11/11/2024 Findings: Mediastinal adenopathy again noted which is slightly decreased in sizewhen compared to the prior study. A precarinal lymph node measured 1.5 cmin AP dimension on the prior study and measures 1.3 cm on the currentexam. Cardiomegaly. No adrenal nodule. Atherosclerotic changes. Biapicalpleural-parenchymal thickening and emphysema. Decreased size of irregularnodular density within the left upper lobe compared to the prior study,previously measuring 1.2 cm, currently measuring 1.0 cm, series 9, image32. Additional ill-defined nodular densities elsewhere within the leftupper lobe are likely similar. Mild fibrotic changes are also present. Nofracture. Impression: Slight decreased size of mediastinal adenopathy and irregular left upperlobe nodule. Remainder of the pulmonary parenchyma is similar. Please note that all CT scans at this facility use dose modulation,iterative reconstruction, and/or weight-based dosing when appropriate toreduce radiation dose to as low as reasonably achievable. Dictated by Richard More MD @ 12/12/2024 2:59:05 PM (Electronically Signed) Soumya Quach DO CT Final Resul t * (ABNORMAL) VITAMIN D 25 (DEFICIENCY) (11/11/2024 12:47 PM CDL DEDICATED TRUCK DRIVER) VITAMIN D,25-OH,TOTAL,IA 105(H) 30 - 100 ng/mL [employer] [facility] Comment: Vitamin D Status 25-OH Vitamin D: Deficiency: <20 ng/mL Insufficiency: 20 - 29 ng/mL Optimal: > or = 30 ng/mL For 25-OH Vitamin D testing on patients on D2-supplementation and patients for whom quantitation of D2 and D3 fractions is required, the [facility]() 25-OH VIT D, (D2,D3), LC/MS/MS is recommended: order code [id number] (patients >2yrs). See Note 1 Note 1 For additional information, please refer to [email or web address] (This link is being provided for informational/ educational purposes only.) Blood BLOOD SPECIMEN / Unknown 11/11/2024 12:47 PM CDL DEDICATED TRUCK DRIVER 11/11/2024 12:47 PM CDL DEDICATED TRUCK DRIVER us Ling Thayer DO SEND OUTS Final Result [employer] [facility] [address] [place] [address], [facility] [address] [place] [address] * CBC AND DIFFERENTIAL (11/11/2024 12:47 PM CDL DEDICATED TRUCK DRIVER) [facility] WHITE BLOOD CELL COUNT 6.1 3.8 - 10.8 Thousand/u L [facility] RED BLOOD CELL COUNT 4.18 3.80 - 5.10 Million/uL [facility] HEMOGLOBIN 12.9 11.7 - 15.5 g/dL [facility] HEMATOCRIT 39.8 35.0 - 45.0 % [facility] MCV 95.2 80.0 - 100.0 fL [facility] MCH 30.9 27.0 - 33.0 pg [facility] MCHC 32.4 32.0 - 36.0 g/dL [facility] Comment: For adults, a slight decrease in the calculated MCHC value (in the range of 30 to 32 g/dL) is most likely not clinically significant; however, it should be interpreted with caution in correlation with other red cell parameters and the patient's clinical condition. RDW 13.8 11.0 - 15.0 % [facility] PLATELET COUNT 290 140 - 400 Thousand/u L [facility] MPV 11.5 7.5 - 12.5 fL [facility] ABSOLUTE NEUTROPHILS 3,587 1,500 - 7,800 cells/uL [facility] ABSOLUTE LYMPHOCYTES 1,665 850 - 3,900 cells/uL [facility] ABSOLUTE MONOCYTES 580 200 - 950 cells/uL [facility] ABSOLUTE EOSINOPHILS 207 15 - 500 cells/uL [facility] ABSOLUTE BASOPHILS 61 0 - 200 cells/uL [facility] NEUTROPHILS 58.8 % [facility] LYMPHOCYTES 27.3 % [facility] MONOCYTES 9.5 % [facility] EOSINOPHILS 3.4 % [facility] BASOPHILS 1.0 % [facility] Blood BLOOD SPECIMEN / Unknown 11/11/2024 12:47 PM CDL DEDICATED TRUCK DRIVER 11/11/2024 12:47 PM CDL DEDICATED TRUCK DRIVER Ling Jennyfer Calderonjorje DO HEMATOLOGY Final Result [employer] [facility] [address] [place] [address], [place] [phone] [employer] [address] [place] [address] * BASIC METABOLIC PANEL (11/11/2024 12:47 PM CDL DEDICATED TRUCK DRIVER) Only the most recent of4 resultswithin the time period is included. [facility] GLUCOSE 84 65 - 99 mg/dL [facility] Comment: Fasting reference interval UREA NITROGEN (BUN) 12 7 - 25 mg/dL [facility] CREATININE 0.78 0.60 - 1.00 mg/dL [facility] EGFR 79 > OR = 60 mL/min/1. 73m2 [facility] BUN/CREATININE RATIO SEE NOTE: 6 - 22 (calc) [facility] Comment: Not Reported: BUN and Creatinine are within reference range. SODIUM 141 135 - 146 mmol/L [facility] POTASSIUM 4.7 3.5 - 5.3 mmol/L [facility] CHLORIDE 103 98 - 110 mmol/L [facility] CARBON DIOXIDE 28 20 - 32 mmol/L [facility] ELECTROLYTE BALANCE 10 7 - 17 mmol/L (calc) [facility] CALCIUM 9.4 8.6 - 10.4 mg/dL [facility] Blood BLOOD SPECIMEN / Unknown 11/11/2024 12:47 PM CDL DEDICATED TRUCK DRIVER 11/11/2024 12:47 PM CDL DEDICATED TRUCK DRIVER Ling Calderonjorje DO CHEMISTRY Final Result [employer] [facility] [address] [place] [address], [place] [phone] [facility] [address] [place] [address] * CT CHEST W (10/23/2024 11:39 AM CDL DEDICATED TRUCK DRIVER) Anatomical Region Laterality Modality CHEST, THORAX, HEART Computed To mography 10/23/2024 12:1 3 PM CDL DEDICATED TRUCK DRIVER Narrative 10/23/2024 12:13 PM CDL DEDICATED TRUCK DRIVER For Patients: As a result of the Century Cures Act, medical imaging exams and procedure reports are released immediately into your electronic medical record. You may view this report before your referring provider. If you have questions, please contact your health care provider. Indication: Abnormal xray - lung nodule, Greater Than= 1 cm Technique: CT CHEST W Omnipaque 350 80CC Please note that all CT scans at this facility use dose modulation, iterative reconstruction, and/or weight-based dosing when appropriate to reduce radiation dose to as low as reasonably achievable. Comparison: CT chest 10/08/2023, chest x-ray 10/23/2024 Findings: Emphysema. Multifocal airspace/reticular densities are present throughout the left upper lobe with a masslike area of opacification in the subpleural lung measuring 3.5 cm. A few scattered ill-defined densities are present elsewhere within the right upper lobe. Subpleural densities are present within the posterior aspect of the right lower lobe. No pleural effusion. No pneumothorax. Visualized thyroid gland is normal. Atherosclerotic changes. Mediastinal adenopathy with lymph nodes measuring up to 1.3 cm. Small pleural effusions. No axillary adenopathy. No vertebral body compression fracture. Impression: Multifocal ill-defined airspace/reticular densities particularly within the left upper lobe measuring up to 3.5 cm in size. Similar ill-defined densities are present elsewhere including the right upper lobe and posterior segment of the right lower lobe. Underlying emphysema. Differential diagnosis includes multifocal pneumonia although can not exclude malignancy. Cardiomegaly without CHF. Trace pleural effusions. Mediastinal adenopathy which is similar to the prior examination. Please note that all CT scans at this facility use dose modulation, iterative reconstruction, and/or weight-based dosing when appropriate to reduce radiation dose to as low as reasonably achievable. Dictated by Richard More MD @ 10/23/2024 12:13:22 PM (Electronically Signed) Procedure Note Richard More MD - 10/23/2024 For Patients: As a result of the 21st Century Cures Act, medical imagingexams and procedure reports are released immediately into your electronicmedical record. You may view this report before your referring provider.If you have questions, please contact your health care provider. Indication: Abnormal xray - lung nodule, Greater Than= 1 cm Technique: CT CHEST W Omnipaque 350 80CC Please note that all CT scans at this facility use dose modulation,iterative reconstruction, and/or weight-based dosing when appropriate toreduce radiation dose to as low as reasonably achievable. Comparison: CT chest 10/08/2023, chest x-ray 10/23/2024 Findings: Emphysema. Multifocal airspace/reticular densities are present throughoutthe left upper lobe with a masslike area of opacification in thesubpleural lung measuring 3.5 cm. A few scattered ill-defined densitiesare present elsewhere within the right upper lobe. Subpleural densitiesare present within the posterior aspect of the right lower lobe. Nopleural effusion. No pneumothorax. Visualized thyroid gland is normal.Atherosclerotic changes. Mediastinal adenopathy with lymph nodes measuringup to 1.3 cm. Small pleural effusions. No axillary adenopathy. Novertebral body compression fracture. Impression: Multifocal ill-defined airspace/reticular densities particularly withinthe left upper lobe measuring up to 3.5 cm in size. Similar ill-defineddensities are present elsewhere including the right upper lobe andposterior segment of the right lower lobe. Underlying emphysema.Differential diagnosis includes multifocal pneumonia although can notexclude malignancy. Cardiomegaly without CHF. Trace pleural effusions. Mediastinal adenopathy which is similar to the prior examination. Please note that all CT scans at this facility use dose modulation,iterative reconstruction, and/or weight-based dosing when appropriate toreduce radiation dose to as low as reasonably achievable. Dictated by Richard More MD @ 10/23/2024 12:13:22 PM (Electronically Signed) us Wen Salazar MD CT Final Res ult * PACER NE DUAL CHAMBER WO REPROG (10/23/2024 10:47 AM CDL DEDICATED TRUCK DRIVER) Narrative Haley Mane MD - 10/23/2024 10:47 AM Oneil Razo RN 10/23/2024 10:55 AM PACEMAKER EVALUATION REPORT October 23, 2024 Summary: Normal pacemaker function. Lead trends stable. 100% AT/AF. No VT detections. Last EF 55-60 % per Echo on 10/21/24. 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 Battery estimating initializing years remaining. Indication for Pacemaker: Complete Heart Block - Post AV Node Ablation Primary MD: Soumya Quach DO Primary Chief Dietitian: Implanting MD: Dr. Mane DEVICE DATA Bi Data Modeler Medtronic: Model Gisele XT DR DEIDRE Pan [id number] Implant Date 10/22/2024 LEAD DATA Atrial Lead: Bi Data Modeler Medtronic: Model 5076 52 cm Implant Date 10/22/2024 RV Lead: Bi Data Modeler Medtronic: Model 3830 69 cm Implant Date 10/22/2024 Advisory: None Location of evaluation: [facility], [facility] Reason for evaluation: Routine, 1st day post implant MEASUREMENTS Atrial Sensing - P wave: 3.8 mV Atrial Capture: ENID r/t atrial fib Atrial Lead Impedance: 741 ohms Ventricular Sensing - R wave: none seen at VVI 30 RV Capture: 0.5 V @ 0.4 ms Ventricular Lead Impedance: Right - 760 ohms Underlying rhythm: Atrial Fibrillation with CHB, no ventricular escape seen at VVI 30 DIAGNOSTIC DATA - since 10/22/2024 Atrial paced: 0.1%, Ventricular paced: 100% Atrial episodes (AF web alerts OFF): 100% Associated symptoms: n/a Ventricular episodes (detects >150 bpm): None Associated symptoms: n/a Last EF 55-60% per Echo on 10/21/24 Histogram: appropriate for patient's lifestyle Magnet rate: 85 bpm Battery voltage: 3.18 V Estimated battery longevity: initializing FINAL PARAMETERS Mode: DDDR Lower rate: 80 bpm Upper rate: 130 bpm AV Delay: 180/150 ms Mode Switch: >150 bpm Rate Response: Low 3/3 Atrial - Amplitude: adaptive 3.5 V Pulse width: 0.4 ms Sensitivity: 0.3 mV Refractory: auto 250 ms Polarity: Bipolar Right Ventricular - Amplitude: adaptive 3.5 V Pulse width: 0.4 ms Sensitivity: 2.0 mV Polarity: Bipolar Changes made: Device temporarily reprogrammed, iterative adjustments made during interrogation/testing. No permanent changes made. Patient education post-device implant complete. Discussed incision care, signs and symptoms of infection, including redness, drainage, swelling, fever, and chills, & activity restrictions. Also discussed indication for implant and device mechanics. Education folder containing device booklet, ID card and incision care sheet was reviewed and given to patient to take home at discharge. Patient verbalized understanding the above and is agreeable with plan of care as described. Patient was given [employer] business card and encouraged to call if she has any concerns or questions in the future. Pt was enrolled in [employer] and a Relay monitor was paired. Follow up: 3 months in [place], 01/25/24 at 1:30 pm Routine follow up: 4 month [facility] (Relay monitor) with annual [place] in January. Signed By: Oneil Guardado RN, CCDS 10/23/2024 Haley Mane MD CARDIAC SERVICES ORD Final Result * EKG 12-Lead - In AM (10/23/2024 9:00 AM CDL DEDICATED TRUCK DRIVER) Only the most recent of2 resultswithin the time period is included. Interpretation Atrial flutter and Ventricular-pa richard rhythm Abnormal ECG When compared with ECG of 20-Oct-2024 16:12, Electronic ventricular pacemaker has replaced Atrial flutter Vent. rate has decreased by 46 bpm BEYOND NOW Ventricular Rate 80 BPM BEYOND NOW Atrial Rate 359 BPM BEYOND NOW P-R Interval ms BEYOND NOW QRS Duration 138 ms BEYOND NOW QT 436 ms BEYOND NOW QTc 502 ms BEYOND NOW P [place] 83 degrees BEYOND NOW R [place] 61 degrees BEYOND NOW T [place] 91 degrees BEYOND NOW 10/23/2024 9:00 AM CDL DEDICATED TRUCK DRIVER 10/23/2024 3:41 PM CDL DEDICATED TRUCK DRIVER Haley Mane MD EKG ORD Final Resul t BEYOND NOW [place], [place] * (ABNORMAL) WHITE BLOOD COUNT (10/23/2024 8:35 AM CDL DEDICATED TRUCK DRIVER) Only the most recent of3 resultswithin the time period is included. WHITE BLOOD COUNT 11.3(H) 4.5 - 11.0 thou/cu mm 10/23/2024 9:01 AM CDL DEDICATED TRUCK DRIVER [facility] NRBC 0.0 % 10/23/2024 9:01 AM CDL DEDICATED TRUCK DRIVER [facility] ABS NRBC 0.0 thou /cu mm 10/23/2024 9:01 AM CDL DEDICATED TRUCK DRIVER [facility] Blood BLOOD SPECIMEN / Unknown Venipuncture / Unknown 10/23/2024 8:35 AM CDL DEDICATED TRUCK DRIVER 10/23/2024 8:46 AM CDL DEDICATED TRUCK DRIVER Wen Salazar MD HEMATOLOGY Final Res ult Performing Organization Address [facility] Co de Phone Number [facility] [address] [address], [place] * MAGNESIUM (10/23/2024 8:35 AM CDL DEDICATED TRUCK DRIVER) Only the most recent of4 resultswithin the time period is included. MAGNESIUM 2.0 1.6 - 2.4 mg/dL 10/23/2024 9:16 AM CDL DEDICATED TRUCK DRIVER [facility] Blood BLOOD SPECIMEN / Unknown Venipuncture / Unknown 10/23/2024 8:35 AM CDL DEDICATED TRUCK DRIVER 10/23/2024 8:46 AM CDL DEDICATED TRUCK DRIVER Wen Salazar MD CHEMISTRY Final Res ult Performing Organization Address [facility] de Phone Number [facility] [address] [address], [place] * XR Chest PA and Lateral (10/23/2024 7:45 AM CDL DEDICATED TRUCK DRIVER) Only the most recent of2 resultswithin the time period is included. Anatomical Region Laterality Modality CHEST, THORAX, Lung, HEART Digit al Radiography 10/23/2024 8:05 AM CDL DEDICATED TRUCK DRIVER Impressions 10/23/2024 8:05 AM CDL DEDICATED TRUCK DRIVER 1. Recommend chest CT with IV contrast to evaluate the left upper lobe consolidation/nodules. 2. No direct pacemaker placement complication seen. Dictated by Lakisha Walters MD @ Oct 23 2024 8:05AM (Electronically Signed) [email or web address] Narrative 10/23/2024 8:05 AM CDL DEDICATED TRUCK DRIVER For Patients: As a result of the Cures Act, medical imaging exams and procedure reports are released immediately into your electronic medical record. You may view this report before your referring provider. If you have questions, please contact your health care provider. INDICATION: Post pacemaker placement COMPARISON: 10/20/2024, 12/24/2023, chest CT 10/08/2023 TECHNIQUE: PA and lateral 2 view chest. FINDINGS: Lung volumes are good. 2.5 centimeter irregular consolidation in the left upper lobe at the apex. 3 centimeter irregular consolidative opacity along the superolateral left upper lobe. These are similar to the exam from a few days ago but new since 12/24/2023. Background of reticulation consistent with emphysema is similar. No pulmonary edema. No pleural effusion. No pneumothorax. No pneumomediastinum. Left subclavian transvenous dual lead pacemaker with right atrial and right ventricular lead in the typical positions. Heart size is slightly large. Upper mediastinal contours are normal. Atherosclerotic vascular calcifications. Bones: No acute appearing bone findings. Degenerative change in the left shoulder and spine. Procedure Note Lakisha Walters MD - 10/23/2024 For Patients: As a result of the Cures Act, medical imagingexams and procedure reports are released immediately into your electronicmedical record. You may view this report before your referring provider.If you have questions, please contact your health care provider. INDICATION: Post pacemaker placement COMPARISON: 10/20/2024, 12/24/2023, chest CT 10/08/2023 TECHNIQUE: PA and lateral 2 view chest. FINDINGS: Lung volumes are good. 2.5 centimeter irregular consolidation in the leftupper lobe at the apex. 3 centimeter irregular consolidative opacity alongthe superolateral left upper lobe. These are similar to the exam from afew days ago but new since 12/24/2023. Background of reticulationconsistent with emphysema is similar. No pulmonary edema. No pleuraleffusion. No pneumothorax. No pneumomediastinum. Left subclavian transvenous dual lead pacemaker with right atrial andright ventricular lead in the typical positions. Heart size is slightlylarge. Upper mediastinal contours are normal. Atherosclerotic vascularcalcifications. Bones: No acute appearing bone findings. Degenerative change in the leftshoulder and spine. IMPRESSION: 1. Recommend chest CT with IV contrast to evaluate the left upper lobeconsolidation/nodules. 2. No direct pacemaker placement complication seen. Dictated by Lakisha Walters MD @ Oct 23 2024 8:05AM (Electronically Signed) [email or web address] us Haley Mane MD GENERAL IMAGING Final Resul t * SCAN-CARDIAC STRIP (10/23/2024 7:01 AM CDL DEDICATED TRUCK DRIVER) us Scanner OTHER Final Result * SCAN-CARDIAC STRIP (10/23/2024 1:19 AM CDL DEDICATED TRUCK DRIVER) us Scanner OTHER Final Result * SCAN-CARDIAC STRIP (10/22/2024 8:04 PM CDL DEDICATED TRUCK DRIVER) us Scanner OTHER Final Result * SCAN-CARDIAC STRIP (10/22/2024 2:58 PM CDL DEDICATED TRUCK DRIVER) us Scanner OTHER Final Result * SCAN-CARDIAC STRIP (10/22/2024 12:05 PM CDL DEDICATED TRUCK DRIVER) us Scanner OTHER Final Result * EP PPM (10/22/2024 9:59 AM CDL DEDICATED TRUCK DRIVER) Anatomical Region Laterality Modality Other 10/22/2024 9:59 AM CDL DEDICATED TRUCK DRIVER Narrative Transcriptions Haley Mane MD - 10/22/2024 10:48 AM CST [facility] Electrophysiology Procedure/Implant Report Name: DAT GIL Event Date: 10/22/2024 Excellian ID #: [id number] Date: 1950 Gender: Female Age: 74 CHRISTOPHE #: [id number] Procedure Performed By: HALEY MANE [facility] Referring Physician: Summary / Conclusions PACEMAKER * Dual chamber pacemaker system successfully implanted. * Procedure completed without incident. * Appropriate device functionality observed at end of case. AV NODE ABLATION * Successful AV node ablation without escape rhythm. Recommendations / Plan Preoperative Diagnosis: AF/RVR Procedure: DDD PPM AVN RFA Findings/Conclusions: Successful DDD PPM implant under MAC LBBAP [id number]= 82ms Interpeak = 32ms QRS change below 2.75V to selective LBBAP Successful AVN RFA via axillary vein approach Device tethered Postoperative Diagnosis: Same as preoperative diagnosis Complications: NA Personally monitored patient with conscious sedation during procedure:No Estimated Blood Loss: minimal Specimen: N/A Plan: Bedrest x 2 hours Observe on telemetry overnight PA/Lateral CXR in AM Device check in AM Stop sotalol Stop Diltiazem May continue [employer] carvedilol EP Service to follow Pre-Operative Diagnosis ? Atrial Fibrillation, Persistent, RVR ? Sinus node dysfunction Post-Operative Diagnosis ? Same as Pre-operative diagnosis ? AV block, 3rd degree, Status Post AV Node ablation Indications ? Same as Pre-operative diagnosis Brief Patient History Comments * 74-year-old female with recurrent sustained atrial fibrillation'sassociated with rapid ventricular response and heart failure withpreserved ejection fraction was evaluated by the EP service and referredfor dual-chamber pacemaker implantation with AV node ablation. LVfunction is preserved. She presents for the procedure today. I haveanswered her questions. Consent & [place] Protocol [place] protocol was followed. TIME OUT conducted just prior tostarting procedure confirmed patient identity, site/side, procedure,patient position, and availability of correct equipment and implants (ifapplicable). The risks, benefits, and alternatives of the procedure were discussed withthe patient and written informed consent was obtained. Procedure Description The patient presented to the lab in AF/RVR. After written informed consent was obtained, the left pre-pectoral spacewas prepped and draped in the usual sterile fashion. Under MAC and local lidocaine/bupivacaine anesthetic, a left prepectoralincision yielded access for creation of the pocket. The pocket was fashioned using blunt dissection and short bursts ofelectrocautery. Hemostasis was assured. The pocket was packed with an antibiotic soaked sponge. Two venous accesses were obtained using the micropuncture set,fluoroscopy, the Seldinger technique, a first rib approach. Guidewireswere passed to the level of the RA/IVC junction via the SVC. Via the first access, a 4Fr fixed helix bipolar lead was advanced to theRV septum via the delivery sheath. Unipolar pace-mapping was performed toidentify an appropriate location of lead implantation in the distalconduction system remote for the anticipated ablation site. The lead was fixed into place in the mid-RV septum under fluoroscopicguidance. Appropriate pacing and sensing parameters were recorded. There was LBBAP. N3VARDP = 82ms InterPeak = 32ms QRS morphology change to selective LBBAP at 2.5V. The His Guide was retained for the ablation. Via the other access, the 3.5mm irrigated tipped ablation catheter wasadvanced via the Bolanos sheath to the RA and the septum at the TV annuluswas mapped. The Bundle of His electrogram was recorded and its location marked using ashort cine loop. After checking the lead parameters once again, ablation was performed atthe region of the bundle of His and AV block was achieved early in theinitial lesion delivery. RV pacing was performed via the device. A second lesion was delivered in the successful location and a thirdlesion just proximal and below the His location, and the catheter wasremoved. The Bolanos sheath was exchanged over a wire for the 7Fr short SafeSheathand an active fixation bipolar lead was advanced to the level of the RAwhere it was fixed to the RA roof over a J-shaped stylet. Excellent electrical parameters were recorded. The atrial lead sheath was split away. The His guide catheter was drawn back and split away and the lead remainedstable. The leads were fixed to their suture sleeves after adequate redundancy wasassured and tied down in the pocket using nonabsorbable suture. The device was connected to the leads and tested. The sponge in the pocket was removed and hemostasis was assured. The pocket was further irrigated and agitated with copious antibioticsolution. The device was introduced into the pocket and the leads tucked behind thepulse generator. A cine run of the entire system was obtained in the AP projection andrecorded. The lead tips remained in stable position and the leadconnectors were well seated within the device header . Additional observation of the lead redundancy in CHARLES with deep inspiratoryeffort was performed to be ensure adequate lead redundancy. The pocket was closed in three layers with absorbable suture and coveredwith a Silverlon dressing. The procedure was well tolerated and there were no apparentcomplications. Estimated blood loss was less than 10 cc. Electrophysiology Study Data Basic Intervals Study State Underlying Rhythm Cycle Length WI PA AH HV QRS [place] QRSMorphology Baseline Atrial Fibrillation 1048 Post Ablation V Paced 745 Ablation Data AV Node Energy Source Ablation Catheter Used Rhythm During Ablation # of AttemptsMax Owusu Max Temp. Result RF EZ Steer ThermoCool, 3.5mm AV Paced 3 35 25 Success Comments: Total ablation time (seconds): 156 Catheter Use Catheter Type Catheter Description Insertion Site Intracardiac Site SheathSize Sheath Type Sheath Description Ablation EZ STEER Thermocool SF MINH, 3.5mm tip, Thermocouple, D-F curveLeft Subclavian Map/Abl 8.5F Guide [place] Implantable Device Specifications Pulse Generator Detail Implanted Status Pocket Location Bi Data Modeler Model Serial Number 10/22/2024 Implanted Left Pectoral [employer] [place] XT DR MRI [id number] Lead Detail Implanted Status Chamber Location Bi Data Modeler Model Serial Number 10/22/2024 Implanted Right Ventricle Septum [employer] Secure [id number] 10/22/2024 Implanted Right Atrium Right Appendage [employer]CapSureFix Novus [id number] Measurement Fence Rider P/R Wave (mV) Threshold (V) Pulse Width (msec) Resistance (ohms) High Output Stim Result RA 1.8 904 No Stimulation @ 10 V RV 13.6 1 0.4 1163 No Stimulation @ 10 V Device Settings Mode Lower Rate (bpm) Upper Rate (bpm) DDDR 80 130 OLIVIA Delay: 150 msec PAV Delay: 180 msec Lead Amplitude (V) Pulse Width (msec) Sensitivity (mV) Configuration Atrial 3.5 0.4 Bipolar RV 3.5 0.4 Bipolar Features Magnet Use: Enabled Wireless Telemetry: Active Complications ? No complications Procedure(s) Performed ? Insertion of new or replacement PPM with transvenous electrode (s);Atrial and Ventricular ? AV Node Ablation Procedure Detail Estimated Blood Loss: < 50 ml Specimen Collected: None Level of Sedation Achieved: See Anesthesia Note Total Flouro Time: 2.7 OPERATING ROOM MANAGER Total Flouro Dose: 4.0 mGy Staff Name Role Richard Bailey RN Nurse [facility] EPT Monitor Soumya Zelaya NP Scrub [facility] EPT Glass Blowing Lathe OperatorHaley Sanchez MD Medications Ordered and Administered Start Time Stop Time Medication Dose Units Route Ordered By Given By 09:59 0.25% Bupivicaine 20 mL Subcut MD Ines Quan, EPT 09:59 1% Lidocaine Hydrochloride 20 mL Subcut MD Huyen Quan, EPT 10:31 Ancef Irrigation 1 g None MD Soumya Quan, [place] COMMANDER The anesthesia service monitored the patient?s conscious sedation duringthe procedure. The medications listed above were verbally ordered by me and read back tome as documented above. Refer to the hemodynamic procedure log report for additional casedetails. electronically signed on 10/22/2024 10:48:20 AM with status of Final Haley Mane MD [employer] Guid[employer] Counselor [facility] [address] [place] [address] (p) [phone](f) us Haley Mane MD CV IMAGING Edited Resu lt - Final * SCAN-CARDIAC STRIP (10/22/2024 7:53 AM CDL DEDICATED TRUCK DRIVER) us Scanner OTHER Final Result * POTASSIUM (10/21/2024 5:40 PM CDL DEDICATED TRUCK DRIVER) Only the most recent of2 resultswithin the time period is included. Pathologist [facility] POTASSIUM 4.4 3.5 - 5.1 mmol/L 10/21/2024 6:26 PM CDL DEDICATED TRUCK DRIVER [facility] Blood BLOOD SPECIMEN / Unknown Venipuncture / Unknown 10/21/2024 5:40 PM CDL DEDICATED TRUCK DRIVER 10/21/2024 6:03 PM CDL DEDICATED TRUCK DRIVER us Wen Salazar MD CHEMISTRY Final Res ult [facility] [address] [place] [address], * ECHO TTE COMPLETE W CONTRAST (10/21/2024 10:23 AM CDL DEDICATED TRUCK DRIVER) AORTIC VALVE MEAN PG 2 mmHg PEAK TR VELOCITY 2.5 m/s LVEDD 4.1 cm EJECTION FRACTION 55 - 60% Anatomical Region Laterality Modality Ultrasound 10/21/2024 9:20 AM CDL DEDICATED TRUCK DRIVER Narrative 10/21/2024 4:45 PM CDL DEDICATED TRUCK DRIVER ECHOCARDIOGRAM DAT GIL : 1950 74 years Study Date: 10/21/2024 9:20:01 AM Gender: F BP: 139/87 mmHg Height: 173.00 cm BSA: 1.82 m Weight: 69.00 kg Tech: [place] Referring MD: QUIRINO DOVER Site: [facility] Reading Location: ANW IP Patient Location: Inpatient. Procedure: 2D w/ Contrast, Color Doppler and Spectral Doppler. Indication for study: CHF Cardiac Rhythm: Irregular.Study quality: Technically limited. Final Impressions: 1. Technically limited exam. 2. Echo contrast was administered to enhance visualization of all left ventricular segments. 3. Normal LV size, normal wall thickness, normal global systolic function with an estimated EF of 55 - 60%. 4. Right ventricular cavity size is normal, global systolic RV function is borderline reduced. 5. No hemodynamically significant valve disease detected. 6. IVC morphology is suggestive of elevated RA pressure. Comparison Compared to prior exam of 10/09/2023, there has been no significant change. Chamber Sizes and Function Normal left ventricular size, normal wall thickness, normal global systolic function with an estimated EF of 55 - 60%. No resting regional wall motion abnormality visualized. Left atrial size is normal. Right ventricular cavity size is normal, global systolic RV function is borderline reduced. The right atrium is normal. Right atrial volume index is 13 ml/m . The pulmonary artery is of normal size and origin. The sinus of Valsalva is normal sized. The ascending aorta is normal sized. Valves, RV Pressures and Diastolic Function The aortic valve is not well visualized , no stenosis and no regurgitation. The mitral valve is normal in structure, mild mitral regurgitation. Diastolic function assessment not performed. The tricuspid valve is not well visualized. Tricuspid regurgitation is mild regurgitation. The tricuspid regurgitant velocity is 2.4 m/s, the estimated right ventricular systolic pressure is 24 mmHg plus right atrial pressure. There is normal estimated pulmonary pressure by tricuspid regurgitation velocity and right atrial pressure. The pulmonic valve is not well visualized. Trace pulmonary regurgitation. Masses, Effusion, Shunts There is no pericardial effusion. The inferior vena cava is dilated, respiratory size variation less than 50%. No left to right shunting was detected by limited color flow Doppler interrogation of the interatrial septum. MEASUREMENTS AND CALCULATIONS 2-D Measurements and LV Function: LVID (d) 4.1 cm LV FS% (2D) 24 % LVID (s) 3.1 cm LVOT diameter 2.0 cm IVS (d) 1.0 cm HR 110 bpm LVPW (d) 1.1 cm LA Vol index 24 ml/m2 Ao Sinus 2.8 cm RA Vol index 13 ml/m2 Asc Ao 2.8 cm LA 3.9 cm Aortic Valve: Vmax 1.0 m/s NAKUL (V) 2.28 cm VTI 0.21 m NAKUL (I) 2.23 cm LVOT V max 0.8 m/s Max PG 4 mmHg LVOT VTI 0.15 m Mean PG 2 mmHg SV 46 ml Dim Index 0.74 SV index 25 ml/m CO 5.1 l/min CI 2.8 l/min/m Tricuspid Valve and estimated PA pressures: TR Vmax 2.4 m/s TAPSE 1.5 cm TR maxG 24 mmHg Contrast documentation: 2 ml diluted Definity, lot #[id number], [facility]# [id number] was administered peripherally to enhance visualization of all left ventricular segments. . This study was interpreted by an [facility] accredited facility. Final Procedure Note Jeff Niño MD - 10/21/2024 ECHOCARDIOGRAM DAT GIL : 1950 74 years Study Date: 10/21/2024 9:20:01 AM Gender: F BP: 139/87 mmHg Height: 173.00 cm BSA: 1.82 m Weight: 69.00 kg Tech: PHUONG Referring MD: QUIRINO DOVER Site: [facility] Reading Location: ANW Patient Location: Inpatient. Procedure: 2D w/ Contrast, Color Doppler and Spectral Doppler. Indication for study: CHF Cardiac Rhythm: Irregular.Study quality: Technically limited. Final Impressions: 1. Technically limited exam. 2. Echo contrast was administered to enhance visualization of all leftventricular segments. 3. Normal LV size, normal wall thickness, normal global systolic functionwith an estimated EF of 55 - 60%. 4. Right ventricular cavity size is normal, global systolic RV functionis borderline reduced. 5. No hemodynamically significant valve disease detected. 6. IVC morphology is suggestive of elevated RA pressure. Comparison Compared to prior exam of 10/09/2023, there has been no significantchange. Chamber Sizes and Function Normal left ventricular size, normal wall thickness, normal globalsystolic function with an estimated EF of 55 - 60%. No resting regionalwall motion abnormality visualized. Left atrial size is normal. Rightventricular cavity size is normal, global systolic RV function isborderline reduced. The right atrium is normal. Right atrial volume indexis 13 ml/m . The pulmonary artery is of normal size and origin. The sinusof Valsalva is normal sized. The ascending aorta is normal sized. Valves, RV Pressures and Diastolic Function The aortic valve is not well visualized , no stenosis and noregurgitation. The mitral valve is normal in structure, mild mitralregurgitation. Diastolic function assessment not performed. The tricuspidvalve is not well visualized. Tricuspid regurgitation is mildregurgitation. The tricuspid regurgitant velocity is 2.4 m/s, theestimated right ventricular systolic pressure is 24 mmHg plus right atrialpressure. There is normal estimated pulmonary pressure by tricuspidregurgitation velocity and right atrial pressure. The pulmonic valve isnot well visualized. Trace pulmonary regurgitation. Masses, Effusion, Shunts There is no pericardial effusion. The inferior vena cava is dilated,respiratory size variation less than 50%. No left to right shunting wasdetected by limited color flow Doppler interrogation of the interatrialseptum. MEASUREMENTS AND CALCULATIONS 2-D Measurements and LV Function: LVID (d) 4.1 cm LV FS% (2D) 24 % LVID (s) 3.1 cm LVOT diameter 2.0 cm IVS (d) 1.0 cm HR 110 bpm LVPW (d) 1.1 cm LA Vol index 24 ml/m2 Ao Sinus 2.8 cm RA Vol index 13 ml/m2 Asc Ao 2.8 cm LA 3.9 cm Aortic Valve: Vmax 1.0 m/s NAKUL (V) 2.28 cm VTI 0.21 m NAKUL (I) 2.23 cm LVOT V max 0.8 m/s Max PG 4 mmHg LVOT VTI 0.15 m Mean PG 2 mmHg SV 46 ml Dim Index 0.74 SV index 25 ml/m CO 5.1 l/min CI 2.8 l/min/m Tricuspid Valve and estimated PA pressures: TR Vmax 2.4 m/s TAPSE 1.5 cm TR maxG 24 mmHg Contrast documentation: 2 ml diluted Definity, lot #[id number], [facility]#[id number] was administered peripherally to enhance visualization of allleft ventricular segments. . This study was interpreted by an [facility] accredited facility. Final Quirino CASTORENA ECHO ORD Emily l Result * EXTRA TUBE BLUE (10/21/2024 7:46 AM CDL DEDICATED TRUCK DRIVER) Only the most recent of2 resultswithin the time period is included. Blood BLOOD SPECIMEN / Unknown Extra Tube / Unknown 10/21/2024 7:46 AM CDL DEDICATED TRUCK DRIVER 10/21/2024 8:00 AM CDL DEDICATED TRUCK DRIVER Wen Salazar MD LABORATORY Final Res ult [facility] [address] [place] [address], * PLATELET COUNT (10/21/2024 7:46 AM CDL DEDICATED TRUCK DRIVER) PLATELET COUNT 355 140 - 440 thou/cu mm 10/21/2024 8:01 AM CDL DEDICATED TRUCK DRIVER [facility] MPV 10.1 6.5 - 11.0 fL 10/21/2024 8:01 AM CDL DEDICATED TRUCK DRIVER [facility] Blood BLOOD SPECIMEN / Unknown Venipuncture / Unknown 10/21/2024 7:46 AM CDL DEDICATED TRUCK DRIVER 10/21/2024 7:55 AM CDL DEDICATED TRUCK DRIVER Quirino CASTORENA HEMATOLOGY Emily l Result [facility] [address] [address], [place] * HEMOGLOBIN (10/21/2024 7:46 AM CDL DEDICATED TRUCK DRIVER) HEMOGLOBIN 12.3 12.0 - 16.0 g/dL 10/21/2024 8:01 AM CDL DEDICATED TRUCK DRIVER [facility] MCV 92 80 - 100 fL 10/21/2024 8:01 AM CDL DEDICATED TRUCK DRIVER [facility] Blood BLOOD SPECIMEN / Unknown Venipuncture / Unknown 10/21/2024 7:46 AM CDL DEDICATED TRUCK DRIVER 10/21/2024 7:55 AM CDL DEDICATED TRUCK DRIVER Quirino CASTORENA HEMATOLOGY Emily l Result Performing Organization Address [facility] Co de Phone Number [facility] [address] [address], [place] * (ABNORMAL) SODIUM (10/21/2024 7:46 AM CDL DEDICATED TRUCK DRIVER) Pathologist [facility] SODIUM 131(L) 136 - 145 mmol/L 10/21/2024 8:21 AM CDL DEDICATED TRUCK DRIVER [facility] Blood BLOOD SPECIMEN / Unknown Venipuncture / Unknown 10/21/2024 7:46 AM CDL DEDICATED TRUCK DRIVER 10/21/2024 7:55 AM CDL DEDICATED TRUCK DRIVER Quirino CASTORENA CHEMISTRY Emily l Result Performing Organization Address [facility] Co de Phone Number [facility] [address] [place] [address], [place] * (ABNORMAL) CREATININE (10/21/2024 7:46 AM CDL DEDICATED TRUCK DRIVER) eGFR 87(L) >90 mL/min/1.7 3m2 10/21/2024 8:21 AM CDL DEDICATED TRUCK DRIVER [facility] Comment:As of 2022, eG FR is calculated by the CKD-EPI creatinine equation without race adjustment. eGFR can be influenced by muscle mass, exercise, and diet. The reported eGFR is an estimation only and is only applicable if the renal function is stable. CREATININE 0.72 0.50 - 0.90 mg/dL 10/21/2024 8:21 AM CDL DEDICATED TRUCK DRIVER [facility] Blood BLOOD SPECIMEN / Unknown Venipuncture / Unknown 10/21/2024 7:46 AM CDL DEDICATED TRUCK DRIVER 10/21/2024 7:55 AM CDL DEDICATED TRUCK DRIVER Quirino STEIN CHEMISTRY Emily l Result [facility] [address] [place] [address], [place] * PROCALCITONIN (10/20/2024 6:31 PM CDL DEDICATED TRUCK DRIVER) PROCALCITONIN 0.16 ng/ml 10/20/2024 7:16 PM CDL DEDICATED TRUCK DRIVER [facility] Blood BLOOD SPECIMEN / Unknown Non-Lab Venipuncture / Unknown 10/20/2024 6:31 PM CDL DEDICATED TRUCK DRIVER 10/20/2024 6:42 PM CDL DEDICATED TRUCK DRIVER Narrative [facility] - 10/20/2024 7:16 PM CDL DEDICATED TRUCK DRIVER Procalcitonin for initial assessment of Lower Respiratory Tract Infection: Results Interpretation <0.10 ng/mL Antibiotic therapy strongly discoraged. Indicates absent of bacterial infection. * 0.10 - 0.25 ng/mL Antibiotic therapy discouraged. Bacterial infection unlikely. * 0.26 - 0.50 ng/mL Antibiotic therapy encouraged. Bacterial infection possible. >0.50 ng/mL Antibiotic therapy strongly encouraged. Suggestive of presence of bacterial infection. *Antibiotic therapy should be considered regardless of PCT result if the patient is clinically unstable, is at high risk for adverse outcome, has strong evidence of bacterial pathogen, or the clinical context indicates antibiotic therapy is warranted. If antibiotics are withheld, reassess if symptoms persist/worsen and/or repeat PCT measurement within 6-24 hours. In order to assess treatment success and to support a decision to discontinue antibiotic therapy, follow up samples should be tested once every 1-2 days, based upon physician discretion taking into account patient's evolution and progress. Procalcitonin for initial assessment of severe sepsis risk: Results Interpretation <0.5 ng/ml A PCT level below 0.5 ng/ml on the first day of ICU admission is associated with a low risk for progression to severe sepsis and/or septic shock. > 2.0 ng/mL A PCT level above 2.0 ng/mL on the first day of ICU admission is associated with a high risk for progression to severe sepsis and/or septic shock. Note: Concentrations < 0.5 ng/mL do not exclude an infection, on account of localized infections (without systemic signs) which can be associated with such low concentrations, or a systemic infection in its initial stages(< 6 hours). Furthermore, increased procalcitonin can occur without infection. PCT concentrations between 0.5 and 2.0 ng/mL should be interpreted taking into account the patient's history. It is recommended to retest PCT within 6-24 hours if any concentrations < 2 ng/mL are obtained. Haley Collins MD SEND OUTS Final Result Performing Organization Address [facility] de Phone Number [facility] [address] [address], [place] * TSH (10/20/2024 4:04 PM CDL DEDICATED TRUCK DRIVER) TSH 1.78 0.27 - 4.20 uIU/mL 10/20/2024 5:17 PM CDL DEDICATED TRUCK DRIVER [facility] Blood BLOOD SPECIMEN / Unknown Non-Lab Venipuncture / Unknown 10/20/2024 4:04 PM CDL DEDICATED TRUCK DRIVER 10/20/2024 4:14 PM CDL DEDICATED TRUCK DRIVER [facility] - 10/20/2024 5:17 PM CDL DEDICATED TRUCK DRIVER In Adults, TSH values between 5.00 and 10.00 uIU/ml do not necessarily indicate the presence of Hypothyroidism. Correlation with clinical findings such as presence of goiter and/or Thyroperoxidase (TPO) Antibody may be helpful. For more information please refer to DAVID 2004; 291: 228-238. Haley Collins MD CHEMISTRY Final Result Performing Organization Address [facility] Co de Phone Number [facility] [address] [place] [address], [place] * (ABNORMAL) CBC W PLT NO DIFF (10/20/2024 4:04 PM CDL DEDICATED TRUCK DRIVER) [facility] WHITE BLOOD COUNT 10.3 4.5 - 11.0 thou/cu mm 10/20/2024 4:19 PM CDL DEDICATED TRUCK DRIVER [facility] RED BLOOD COUNT 3.77(L) 4.00 - 5.20 mil/cu mm 10/20/2024 4:19 PM CDL DEDICATED TRUCK DRIVER [facility] HEMOGLOBIN 11.4(L) 12.0 - 16.0 g/dL 10/20/2024 4:19 PM CDL DEDICATED TRUCK DRIVER [facility] HEMATOCRIT 35.1 33.0 - 51.0 % 10/20/2024 4:19 PM CDL DEDICATED TRUCK DRIVER [facility] MCV 93 80 - 100 fL 10/20/2024 4:19 PM [facility] MCH 30.2 26.0 - 34.0 pg 10/20/2024 4:19 PM CDL DEDICATED TRUCK DRIVER [facility] MCHC 32.5 32.0 - 36.0 g/dL 10/20/2024 4:19 PM CDL DEDICATED TRUCK DRIVER [facility] RDW 14.5 11.5 - 15.5 % 10/20/2024 4:19 PM CDL DEDICATED TRUCK DRIVER [facility] PLATELET COUNT 360 140 - 440 thou/cu mm 10/20/2024 4:19 PM CDL DEDICATED TRUCK DRIVER [facility] MPV 10.5 6.5 - 11.0 fL 10/20/2024 4:19 PM CDL DEDICATED TRUCK DRIVER [facility] NRBC 0.0 % 10/20/2024 4:19 PM CDL DEDICATED TRUCK DRIVER [facility] ABS NRBC 0.0 thou /cu mm 10/20/2024 4:19 PM CDL DEDICATED TRUCK DRIVER [facility] Blood BLOOD SPECIMEN / Unknown Non-Lab Venipuncture / Unknown 10/20/2024 4:04 PM CDL DEDICATED TRUCK DRIVER 10/20/2024 4:14 PM CDL DEDICATED TRUCK DRIVER Haley Collins MD HEMATOLOGY Final Result [facility] [address] [place] [address], [place] * (ABNORMAL) PRO-BNP (10/20/2024 4:04 PM CDL DEDICATED TRUCK DRIVER) PRO-BNP 7,438(H) <450 pg/mL 10/20/2024 4:55 PM CDL DEDICATED TRUCK DRIVER [facility] Blood BLOOD SPECIMEN / Unknown Non-Lab Venipuncture / Unknown 10/20/2024 4:04 PM CDL DEDICATED TRUCK DRIVER 10/20/2024 4:14 PM CDL DEDICATED TRUCK DRIVER [facility] - 10/20/2024 4:55 PM CDL DEDICATED TRUCK DRIVER The following cut-points have been suggested for the use of proBNP for the diagnostic evaluation of heart failure (HF) in patient with acute dyspnea. Patients with eGFR >= 60 Diagnosis (rule in CHF) <50 Years Old 450 pg/mL 50 - 75 Years Old 900 pg/mL >75 Years Old 1800 pg/mL Exclusion (rule out CHF) Age Independent 300 pg/mL A cutoff of 1200 pg/mL for patients with an eGFR <60 yields a diagnostic sensitivity of 89% and specificity of 72% for acute congestive heart failure. Haley Collins MD SEND OUTS Final Result [facility] [address] [place] [address], [place] * LIPASE (10/20/2024 4:04 PM CDL DEDICATED TRUCK DRIVER) LIPASE 33.3 13.0 - 60.0 IU/L 10/20/2024 4:51 PM CDL DEDICATED TRUCK DRIVER [facility] Blood BLOOD SPECIMEN / Unknown Non-Lab Venipuncture / Unknown 10/20/2024 4:04 PM CDL DEDICATED TRUCK DRIVER 10/20/2024 4:14 PM CDL DEDICATED TRUCK DRIVER us Haley Collins MD CHEMISTRY Final Result Performing Organization Address City/[facility]/ZIP Co de Phone Number [facility] [address] [place] [address], [place] * (ABNORMAL) HEPATIC FUNCTION PANEL (10/20/2024 4:04 PM CDL DEDICATED TRUCK DRIVER) ALBUMIN 3.5(L) 4.0 - 4.9 g/dL 10/20/2024 4:51 PM CDL DEDICATED TRUCK DRIVER [facility] PROTEIN,TOTAL 7.3 6.0 - 8.0 g/dL 10/20/2024 4:51 PM CDL DEDICATED TRUCK DRIVER [facility] BILIRUBIN,TOTAL 0.5 0.0 - 1.2 mg/dL 10/20/2024 4:51 PM CDL DEDICATED TRUCK DRIVER [facility] BILIRUBIN,DIRECT 0.2 0.0 - 0.2 mg/dL 10/20/2024 4:51 PM CDL DEDICATED TRUCK DRIVER [facility] BILIRUBIN,INDIRE CT 0.3 0.2 - 0.8 mg/dL 10/20/2024 4:51 PM CDL DEDICATED TRUCK DRIVER [facility] ALK PHOSPHATASE 124(H) 35 - 104 IU/L 10/20/2024 4:51 PM CDL DEDICATED TRUCK DRIVER [facility] ALT (SGPT) 235(H) 10 - 35 IU/L 10/20/2024 4:51 PM CDL DEDICATED TRUCK DRIVER [facility] AST (SGOT) 228(H) 10 - 35 IU/L 10/20/2024 4:51 PM CDL DEDICATED TRUCK DRIVER [facility] Blood BLOOD SPECIMEN / Unknown Non-Lab Venipuncture / Unknown 10/20/2024 4:04 PM CDL DEDICATED TRUCK DRIVER 10/20/2024 4:14 PM CDL DEDICATED TRUCK DRIVER us Haley Collins MD CHEMISTRY Final Result Performing Organization Address City/[facility]/ZIP Co de Phone Number [facility] [address] [place] [address], [place] * (ABNORMAL) XR DXA BONE DENSITY 2 SITES AXIAL (09/22/2019 2:22 PM CDL DEDICATED TRUCK DRIVER) Anatomical Region Laterality Modality Spine, HIPS, HIPL, HIPR Other Narrative 09/28/2019 11:06 AM CDL DEDICATED TRUCK DRIVER Please see scanned document for results of this study. Soumya Quach DO DEXA Final Resul t from Last 3 Months or Most Recently Relevant to Health Maintenance Insurance MEDICARE PART B HB ONLY MEDICARE PB ONLY MEDICARE PART A HB ONLY [facility] PLUS MEDICARE PPS MEDICARE PPS Advance Directives Documents on File Type Date Recorded Patient Refrigerator Mover Expl anation Healthcare Directive 11/12/2023 4:27 PM H EALT CARE DIRECTIVE [facility] 11/12/23 * Full Code (Latest Code Status on File) Date Activated Date Inactivated Comments 10/20/2024 5:11 PM 10/23/2024 6:28 PM Question Answer Comments Code Status Discussion: Reviewed Preferences * Full Code Date Activated Date Inactivated Comments 10/19/2023 10:02 PM 10/21/2023 1:47 PM Question Answer Comments Code Status Discussion: Reviewed Preferences * Full Code Date Activated Date Inactivated Comments 10/08/2023 9:48 PM 10/14/2023 4:35 PM Question Answer Comments Code Status Discussion: Reviewed Preferences * Full Code Date Activated Date Inactivated Comments 06/14/2023 7:41 AM 06/14/2023 6:32 PM Question Answer Comments Code Status Discussion: Reviewed Preferences Care Teams Property Management Supervisor Relationship Specialty Start Date End Date Soumya Quach [place] [address] [place] [address] PCP - General Family Practice 09/17/15 Dat Laura RN [address] [id number] Applications Tester - [facility] Registered Nurse 09/16/15 Lauren Rodriguez RN [facility] [address] [address] Applications Tester - [facility] Registered Nurse 09/12/21 Alba Elizabeth, PharmD [address] [place] [id number] Pharmacist Medication Management Pharmacology 11/26/23
[2025-01-09 22:00] VITALS: BP 162/84; PULSE 84; RESP 18; TEMP 37; O2SAT 98; BMI 23.4
--- NOTE | 2025-01-09 22:24 | CRLHL7_ITS ---
For Patients: As a result of the Cures Act, medical imaging exams and procedure reports are released immediately into your electronic medical record. You may view this report before your referring provider. If you have questions, please contact your health care provider. INDICATION: Shortness of breath TECHNIQUE: Chest radiograph 1 view COMPARISON: 12/01/2023 FINDINGS: Mediastinum: The mediastinum is normal in appearance. The cardiac silhouette is mildly enlarged but may be accentuated by the portable technique. There is a left cardiac pacer present with leads in the right atrium and right ventricle. Lung: Pulmonary vascular congestion is present with mild indistinctness of the pulmonary vessels, suspicious for interstitial edema. Patchy airspace opacities are also noted in the left apex. No sign of pleural effusion seen. No pneumothorax is identified. Bone and Soft tissue: Unremarkable for age. IMPRESSIONS: 1. The cardiac silhouette is mildly enlarged but may be accentuated by the portable technique. 2. Pulmonary vascular congestion is present with mild indistinctness of the pulmonary vessels, suspicious for interstitial edema. Patchy airspace opacities are also noted in the left apex. Dictated by Salvador Matamoros MD @ 01/09/2025 11:48:31 PM Dictated by: Salvador Matamoros MD @ 01/09/2025 23:48:36 (Electronically Signed)
--- NOTE | 2025-01-09 22:25 | ED_ITS ---
HPI - General Adult General Date Seen: 01/09/25 Chief complaint: Shortness of Breath/Dyspnea Stated complaint: Shortness of Breath Time Seen by Provider: 01/09/25 22:13 History of Present Illness HPI narrative: Patient is a 74-year-old woman who comes in by ambulance with stated complaint of shortness of breath. She tells me for the past week and half she has been short of breath on and off throughout the day and night, and she is unable to sleep because she can not take a deep breath. She is somewhat teary as she describes these symptoms to me. She denies chest pain, she has had a cough which it sounds like is more chronic. She has not had fevers. She does feel her legs are little bit swollen. I do not see a prior history of congestive heart failure, she does have a history of atrial fibrillation. She has a long list of medication allergies that she would discussed with me, some are listed on our system but she has added carvedilol and Eliquis to that list so she presumably is no longer taking those. She does not smoke, she is not on home oxygen. Related Data Home Medications ?Medication ?Instructions ?Recorded ?Confirmed apixaban 5 mg tablet (Eliquis) 5 mg PO BID 11/14/23 01/09/25 aspirin 81 mg tablet,delayed 81 mg PO QDAY 11/14/23 01/09/25 release (Adult Aspirin Regimen) torsemide 20 mg tablet 20 mg PO DAILY 11/14/23 01/09/25 albuterol sulfate 90 mcg/actuation 2 puff inhalation QID PRN dyspnea 01/09/25 01/09/25 aerosol inhaler losartan 50 mg tablet mg 01/09/25 Allergies Allergy/AdvReac Type Severity Reaction Status Date / Time amitriptyline Allergy Verified 01/09/25 22:30 bupropion (From Wellbutrin) Allergy Verified 11/14/23 09:46 celecoxib (From Celebrex) Allergy Verified 11/14/23 09:46 cerivastatin (From Baycol) Allergy Verified 11/14/23 09:46 citalopram (From Celexa) Allergy Verified 11/14/23 09:46 enalapril Allergy Verified 11/14/23 09:46 etodolac Allergy Verified 01/09/25 22:30 glucosamine Allergy Verified 12/30/23 09:46 hydroxychloroquine Allergy Verified 01/09/25 22:30 ibuprofen Allergy Verified 11/14/23 09:46 lisinopril Allergy Verified 11/14/23 09:46 simvastatin (From Zocor) Allergy Verified 11/14/23 09:46 apixaban (From Eliquis) AdvReac Verified 01/09/25 22:30 Review of Systems Status of ROS: Reports: 10 or more systems reviewed and unremarkable except as noted in History and below PFSH PFS Social History Smoking Status: Former smoker What tobacco products do you use: cigarettes Sm oking quit date/years: >15 years ago Do you use any of these nicotine containing products: None How often do you have a drink containing alcohol: never How often do you have six or more drinks on one occasion: Never AUDIT-C Alcohol total score: 0 Non-prescribed substance use: denies use Exam Narrative: Exam Narrative: Vital signs reviewed In general, alert, nontoxic elderly woman. She seems emotionally distraught. Head: Normocephalic, atraumatic. Eyes: Sclera clear. Pupils equal and reactive. ENT: Mucous membranes moist. Neck: Supple without adenopathy. Heart: Regular rate and rhythm without murmur. Lungs: Clear. No increased work of breathing, crackles or wheezes. Abdomen: Soft, nontender to palpation. Extremities: Well perfused, pulses intact. No significant edema. No calf tenderness. Neurologic: Alert, conversant. Speech fluent, face symmetric. Moves all extremities equally. Skin: Warm, dry well perfused. Affect: Anxious peer Const: Vital Signs, click to edit/add: Vital Signs - 24 hr 01/09/25 22:00 01/09/25 23:09 Temperature 98.6 F Pulse Rate [Pulse Oximeter] 84 Respiratory Rate 18 Blood Pressure [Ri ght Upper Arm] 162/84 H Pulse Oximetry 98 99 Oxygen Delivery Me thod Room Air Course Course ED Course: Patient is breathing easily here, lungs are clear, O2 sats 98%. Her primary complaint seems to be that she is not able to sleep. She tells me that she does not have any problems with insomnia in general but it is just this breathing problem that presented over the past week and half. It sounds as if she is not currently anticoagulated, anticoagulation prescribed previously for atrial fibrillation. She had an EKG tonight which shows a paced rhythm, ventricular rate of 80. She tells me that she talk to her primary provider via the portal sometime in the past week, she says her primary doctor knows all about her problems with her breathing, and prescribed her a steroid inhaler but she does not feel it was helpful today. I do not see anything on exam that is strongly suggestive of congestive heart failure, do not see significant peripheral edema. I do not hear wheezing or bronchospasm, I do not hear anything that sounds like a pneumonia. Will evaluate for these possible diagnoses. Labs reviewed, troponin is normal, BNP is elevated at 77 80. Her D-dimer was also elevated at 1.6. Therefore, she had a CT scan of the chest which by my review did not show evidence of pulmonary embolism. She did have bilateral pleural effusions and cardiomegaly. Radiology report reviewed, read as negative for PE, moderate bilateral effusions and cardiomegaly. She does not have a lot of prior records here, we do not have prior echo. She is not hypoxic, is breathing comfortably at this time. I gave her 40 mg of Lasix IV, will let her go home with an increase in her daily torsemide to 40 mg from 20 mg. She has an appointment with her primary doctor in about 36 hours, will have her recheck at that time. Return any time for significant worsening shortness of breath or new symptoms such as fever, chest pain etcetera. Vital Signs Vital signs: Initial Vital Signs Temperature 98.6 F 01/09/25 22:00 Temperature Source Temporal Artery Scan 01/09/25 22:00 Pulse Rate 84 01/09/25 22:00 Respiratory Rate 18 01/09/25 22:00 Blood Pressure 162/84 H 01/09/25 22:00 Blood Pressure Mean 110 H 01/09/25 22:00 Blood Pressure Position Sitting 01/09/25 22:00 Pulse Oximetry 98 01/09/25 22:00 Oxygen Delivery Method Room Air 01/09/25 22:00 Vital Signs Temperature 98.6 F 01/09/25 22:00 Pulse Rate 84 01/09/25 22:00 Respiratory Rate 18 01/09/25 22:00 Blood Pressure 162/84 H 01/09/25 22:00 Pulse Oximetry 98 01/09/25 22:00 Oxygen Delivery Method Room Air 01/09/25 22:00 Temperature 98.6 F 01/09/25 22:00 Pulse Rate 94 01/10/25 00:49 Respiratory Rate 16 01/10/25 00:49 Blood Pressure 159/109 H 01/10/25 00:49 Pulse Oximetry 94 01/10/25 00:49 Oxygen Delivery Method Room Air 01/10/25 00:49 Medications Administered Medications: Discontinued Medications Generic Name Dose Route Start Last Admin Trade Name Freq PRN Reason Stop Dose Admin Furosemide 40 mg 01/10/25 00:28 01/10/25 00:36 Furosemide 10 Mg/Ml Inj IVP 01/10/25 00:29 40 mg ONCE ONE Administration Medical Decision Making Lab Data Labs: Lab Results 01/09/25 01/09/25 Range/Units 22:25 22:44 WBC 5.65 (4.50-11.00) K/uL RBC 4.41 (4.00-5.20) m/uL Hgb 13.4 (12.0-16.0) gm/dL Hct 42.4 (33.0-51.0) % MCV 96 (80-100) fL MCH 30 (26-34) pg MCHC 32 (32-36) gm/dL RDW Coeff of Keshawn 15.8 H (11.5-15.5) % Plt Count 245 (140-440) K/uL Neut % (Auto) 58.3 (42.0-72.0) % Lymph % (Auto) 27.3 (20-44) % Terrell % (Auto) 11.2 H (0.0-11.0) % Eos % (Auto) 2.3 (0.0-7.0) % Baso % (Auto) 0.4 (0.0-3.0) % Neut # (Auto) 3.30 (1.7-7.0) K/uL Lymph # (Auto) 1.54 (0.90-2.90) K/uL Terrell # (Auto) 0.60 (0.00-0.90) K/UL Eos # (Auto) 0.13 (0.00-0.50) K/uL Baso # (Auto) 0.02 (0.00-0.30) K/uL Abs Immat Gran (auto) 0.03 (0.00-0.30) K/uL Imm/Tot Granulo (auto) 0.5 % D-Dimer Quant (PE/DVT) 1.62 H (0.00-0.50) ug/ml Sodium 134 L (135-149) mmol/L Potassium 3.9 (3.6-5.1) mmol/L Chloride 96 (96-114) mmol/L Carbon Dioxide 29 (20-32) mmol/L Anion Gap 9 (7-15) mEq/L BUN 20 (7-30) mg/dL Creatinine 0.9 (0.5-1.5) mg/dL Estimated Creat Clear 48.28 Estimated GFR 66 ml/min Glucose 89 (60-115) mg/dL Calcium 9.3 (8.4-10.6) mg/dL C-Reactive Protein 1.3 H (0.5-1.0) mg/dL NT-Pro-B Natriuret Pep 7780 pg/mL POC Troponin I 0.01 (0.01-0.04) ng/ml Imaging Data CT scan - chest: Attestation: I have reviewed the pertinent imaging results. Radiologist's impression: Patient: Gavi Gil MR#: [id number] : 1950 Acct:[id number] Loc: ED Service Date: 01/10/[address]: Ordering Physician: Pinky Cardenas M.D. Date of Service: 01/10/25 Procedure(s): CT angio chest PE protocol Accession Number(s): [id number] cc: Pinky Cardenas M.D.; Soumya Quach D.O.~ For Patients: As a result of the 21st Century Cures Act, medical imaging exams and procedure reports are released immediately into your electronic medical record. You may view this report before your referring provider. If you have questions, please contact your health care provider. INDICATION: Shortness of for breath, elevated D-dimer TECHNIQUE: CT chest with and without i.v. contrast, scanned during the venous phase. Coronal and sagittal reformats were obtained. CONTRAST: 95 mL Isovue 370 COMPARISON: None FINDINGS: Cardiovascular: There is a left cardiac pacer present with leads in the right atrium and right ventricle. Moderate left ventricular enlargement and enlargement of bilateral atria are seen. The pulmonary arteries are unremarkable in appearance. No sign of aneurysm or dissection in the thoracic aorta. Mediastinum: No mass or adenopathy seen. Lung: Mild centrilobular emphysema is present. Nodular peripheral infiltrates are present in the left apex and can be due to chronic granulomatous disease. Pleura and pericardium: Moderate bilateral pleural effusions are present. No significant pericardial effusion is present. Chest wall and axilla: No mass or adenopathy seen. Bone: Unremarkable for age. Upper abdomen: Unremarkable. IMPRESSIONS: 1. Moderate bilateral pleural effusions are present. 2. Moderate left ventricular enlargement and enlargement of bilateral atria are seen. Dictated by Salvador Matamoros MD @ 01/10/2025 12:40:00 AM Please note that all CT scans at this facility use dose modulation, iterative reconstruction, and/or weight-based dosing when appropriate to reduce radiation dose to as low as reasonably achievable. Dictated by: Salvador Matamoros MD @ 01/10/2025 00:41:00 Discharge Plan Discharge Clinical Impression: Shortness of breath, Congestive heart failure Patient Disposition: Home, Self-Care Condition: Stable Instructions: Heart Failure (ED) Additional Instructions: Your imaging suggests she may have mild fluid buildup in your lungs. Your CT scan does not show any blood clots or pneumonia. I would suggest to increase your torsemide to 40 mg a day for the next several days and then follow-up with your primary doctor for recheck. If you feel you are getting more significantly short of breath, are not able to manage at home, developed significant chest pain, fevers, or other worsening, return to the ER at any time. Prescriptions: No Action torsemide 20 mg tablet 20 mg PO DAILY Eliquis 5 mg tablet 5 mg PO BID aspirin [Adult Aspirin Regimen] 81 mg tablet,delayed release (DR/EC) 81 mg PO QDAY losartan 50 mg tablet Patient Comments: TAKE 2 TABLETS (100 MG) BY MOUTH ONCE DAILY. albuterol sulfate 90 mcg/actuation HFA aerosol inhaler 2 puff INHALATION QID PRN (Reason: dyspnea) Follow Up/Referrals: Soumya Quach DO [Primary Care Provider] - Stand Alone Forms: [facility] Info Instructions
[2025-01-09 22:51] LABS: Basophils Absolute Auto 0.02 K/uL (0.00-0.30); Basophils Percent Auto 0.4 % (0.0-3.0); Eosinophils Absolute Auto 0.13 K/uL (0.00-0.50); Eosinophils Percent Auto 2.3 % (0.0-7.0); Hematocrit 42.4 % (33.0-51.0); Hemoglobin* 13.4 gm/dL (12.0-16.0); Immature Granulocytes Abs Auto 0.03 K/uL (0.00-0.30); Immature Granulocytes Pct Auto 0.5 %; Lymphocytes Absolute Auto 1.54 K/uL (0.90-2.90); Lymphocytes Percent Auto 27.3 % (20-44); Mean Corpuscular HGB Conc 32 gm/dL (32-36); Mean Corpuscular Hemoglobin 30 pg (26-34); Mean Corpuscular Volume 96 fL (80-100); Monocytes Percent Auto 11.2 % (0.0-11.0); Neutrophils Percent Auto 58.3 % (42.0-72.0); Platelet Count* 245 K/uL (140-440); RDW Coefficient of Variation % 15.8 % (11.5-15.5); Red Blood Count 4.41 m/uL (4.00-5.20); White Blood Count* 5.65 K/uL (4.50-11.00)
[2025-01-09 22:53] LABS: Slide Review Reflex No
[2025-01-09 22:58] LABS: Troponin, Point-of-Care* 0.01 ng/ml (0.01-0.04)
[2025-01-09 23:04] LABS: Chloride* 96 mmol/L (96-114); Sodium* 134 mmol/L (135-149)
[2025-01-09 23:05] LABS: Potassium* 3.9 mmol/L (3.6-5.1)
[2025-01-09 23:07] LABS: Blood Urea Nitrogen* 20 mg/dL (7-30); Creatinine* 0.9 mg/dL (0.5-1.5); Est. Creatinine Clearance* 48.28; Estimated Glomerular Filt Rate 66 ml/min
[2025-01-09 23:08] LABS: Anion Gap 9 mEq/L (7-15); Calcium* 9.3 mg/dL (8.4-10.6); Carbon Dioxide* 29 mmol/L (20-32); Glucose* 89 mg/dL (60-115)
--- OUTSIDE RECORDS SUMMARY | 2025-01-09 23:08 | XMS_ITS | Clinical Summary ---
Author Organization [employer] [facility] [employer] [facility] Address [address] [place] [address] Care Team Providers Care Television Reporter Name Role Phone Soumya Quach DO Primary Care Provider Dat Laura RN Unavailable [phone] Lauren Rodriguez RN Unavailable [phone] Alba Elizabeth PharmD Unavailable [phone] Allergies Active Allergy Reactions Criticality Noted Date [...] mg by mouth two times daily. Active Smyxq-0-NVI-EPA-Fi sh Oil (Fish OiL) 1,000 mg (120 [...] hip 06/26/2023 Acute appendicitis 06/14/2023 Kidney lesion, red cliff, right 06/14/2023 Stress incontinence, female 03/02/2023 Balance [...] Department Care Team Description 01/04/2025 3:00 PM COOK HOUSE SUPERVISOR Ancillary Procedure [address] [place] [address] Arrived 01/04/2025 2:30 PM COOK HOUSE SUPERVISOR Ancillary Procedure [facility] [address] [place] [address] Arrived 01/04/2025 Travel 01/03/2025 2:00 PM COOK HOUSE SUPERVISOR Pharmacist Medication Management [address] [place] [address] Alba Elizabeth, CedricD Pharmacist Medication Management (Initial Comprehensive Medication Review - Phone Visit ) 12/12/2024 3:05 PM COOK HOUSE SUPERVISOR Office Visit [facility] [address] [place] [address] Soumya Quach DO Medication Management (eliquis, carvedilol, losartan ) 12/12/2024 1:00 PM COOK HOUSE SUPERVISOR Ancillary Procedure [address] [address] 12/12/2024 Travel 12/08/2024 2:50 PM COOK HOUSE SUPERVISOR Telemedicine [facility] [address] [place] [phone] Lauren Patel NP Side Effect; Telehealth 12/08/2024 Travel 12/07/2024 Travel 12/05/2024 Patient Outreach [facility] Care Management - Care Management Navigation/[facility] [address] [place] [address] Judy Maynard Medication Management (CMR - Covered - ACO) 11/18/2024 Telephone [address] [place] [address] Ling Thayer DO Medication Management 11/17/2024 Telephone [address] [place] [address] Soumya Quach DO Outside Order (CT) 11/15/2024 Telephone [facility] [address] [place] [address] Ling Thayer DO clarify 11/11/2024 1:00 PM COOK HOUSE SUPERVISOR Ancillary Procedure [facility] [address] [place] [address] 11/11/2024 12:45 PM COOK HOUSE SUPERVISOR Orders Only [address] [place] [address] Lab, [facility] 11/11/2024 Travel 10/26/2024 11:00 AM COOK HOUSE SUPERVISOR Office Visit [facility] [address] [place] [address] Ling Thayer DO Hospital F/U (A-fib RVR, pacemaker placed - continues to have weakness/fatigue) 10/26/2024 Travel 10/24/2024 Patient Outreach [address] [place] [address] Kate Schwartz, RN Primary RN Care Management; Hospital F/U (LACE 69) 10/22/2024 9:39 AM COOK HOUSE SUPERVISOR Anesthesia Event [facility] [address] [place] [address] Pedro Schultz MD 10/22/2024 Travel 10/20/2024 3:48 PM COOK HOUSE SUPERVISOR - 10/23/2024 4:05 PM COOK HOUSE SUPERVISOR Hospital Encounter [facility] [address], [place] [address] Haley Collins MD [facility] Of [facility], RAFFAELE Bhatti Hand, Wen [...] on file Legal Sex Female 6:29 AM COOK HOUSE SUPERVISOR Gender Identity Not on file Sexual Orientation [...] Comments Blood Pressure 186/96 12/12/2024 2:51 PM COOK HOUSE SUPERVISOR Pulse 93 12/12/2024 2:51 PM COOK HOUSE SUPERVISOR Temperature 36.4 C (97.5 F) 10/23/2024 2:12 PM COOK HOUSE SUPERVISOR Respiratory Rate 16 10/23/2024 2:12 PM COOK HOUSE SUPERVISOR Oxygen Saturation 97% 12/12/2024 2:51 PM COOK HOUSE SUPERVISOR Inhaled Oxygen Concentration - - Weight 68 kg (150 lb) 12/12/2024 2:51 PM COOK HOUSE SUPERVISOR Height 172.7 cm (5' 8) 10/20/2024 3:54 PM COOK HOUSE SUPERVISOR Body Mass Index 22.81 10/20/2024 3:54 PM COOK HOUSE SUPERVISOR Plan of Treatment Upcoming Encounters Date Type Department Care Team (Late st Contact Info) Description 01/11/2025 2:40 PM COOK HOUSE SUPERVISOR Office Visit [facility] [address] [place] [address] RamireztSoumya, [address] [place] [address] 01/24/2025 1:30 PM CDT Cardiac Device Check [facility] [address] [place] [phone] Health Maintenance Due Date Last Done Comments [...] LUMBAR 2 VIEWS Routine 01/04/2025 2:30 PM COOK HOUSE SUPERVISOR Chronic midline low back pain with right-sided sciatica XR HIP 1 VIEW W PELVIS RIGHT Routine 01/04/2025 2:30 PM COOK HOUSE SUPERVISOR Primary osteoarthritis of right hip CT CHEST WO Routine 12/12/2024 1:12 PM COOK HOUSE SUPERVISOR Squamous cell cancer of tongue (HC) Abnormal CT scan of lung CT CHEST WO Routine 11/11/2024 1:15 PM COOK HOUSE SUPERVISOR Abnormal chest CT BASIC METABOLIC PANEL Routine 11/11/2024 12:47 PM COOK HOUSE SUPERVISOR Hyponatremia CBC WITH AUTO DIFFERENTIAL Routine 11/11/2024 12:47 PM COOK HOUSE SUPERVISOR Fatigue, unspecified type VITAMIN D 25 (DEFICIENCY) Routine 11/11/2024 12:47 PM COOK HOUSE SUPERVISOR Fatigue, unspecified type Vitamin D deficiency CT CHEST W Routine 10/23/2024 11:39 AM COOK HOUSE SUPERVISOR PACER NE DUAL CHAMBER WO REPROG Routine 10/23/2024 10:47 AM COOK HOUSE SUPERVISOR EKG 12 LEAD Early AM 10/23/2024 9:00 AM COOK HOUSE SUPERVISOR BASIC METABOLIC PANEL Early AM 10/23/2024 8:35 AM COOK HOUSE SUPERVISOR WHITE BLOOD COUNT Early AM 10/23/2024 8:3 5 AM COOK HOUSE SUPERVISOR MAGNESIUM Early AM 10/23/2024 8:35 AM COOK HOUSE SUPERVISOR XR CHEST 2 VIEWS PA AND LATERAL Routine 10/23/2024 7:45 AM COOK HOUSE SUPERVISOR SCAN-CARDIAC STRIP 10/23/2024 7: 01 AM COOK HOUSE SUPERVISOR SCAN-CARDIAC STRIP 10/23/2024 1: 19 AM COOK HOUSE SUPERVISOR SCAN-CARDIAC STRIP 10/22/2024 8: 04 PM COOK HOUSE SUPERVISOR SCAN-CARDIAC STRIP 10/22/2024 2: 58 PM COOK HOUSE SUPERVISOR SCAN-CARDIAC STRIP 10/22/2024 12 :05 PM COOK HOUSE SUPERVISOR EP PPM Routine 10/22/2024 9:59 AM COOK HOUSE SUPERVISOR SCAN-CARDIAC STRIP 10/22/2024 7: 53 AM COOK HOUSE SUPERVISOR WHITE BLOOD COUNT Early AM 10/22/2024 6:1 6 AM COOK HOUSE SUPERVISOR BASIC METABOLIC PANEL Early AM 10/22/2024 6:16 AM COOK HOUSE SUPERVISOR MAGNESIUM Early AM 10/22/2024 6:16 AM COOK HOUSE SUPERVISOR POTASSIUM Timed 10/21/2024 5:40 PM COOK HOUSE SUPERVISOR ECHO TTE COMPLETE W CONTRAST STAT 10/21/2024 10:23 AM COOK HOUSE SUPERVISOR EXTRA TUBE BLUE Today 10/21/2024 7:46 AM COOK HOUSE SUPERVISOR PLATELET COUNT Early AM 10/21/2024 7:46 AM COOK HOUSE SUPERVISOR HEMOGLOBIN Early AM 10/21/2024 7:46 AM COOK HOUSE SUPERVISOR WHITE BLOOD COUNT Early AM 10/21/2024 7:4 6 AM COOK HOUSE SUPERVISOR MAGNESIUM Early AM 10/21/2024 7:46 AM COOK HOUSE SUPERVISOR CREATININE Early AM 10/21/2024 7:46 AM COOK HOUSE SUPERVISOR POTASSIUM Early AM 10/21/2024 7:46 AM COOK HOUSE SUPERVISOR SODIUM Early AM 10/21/2024 7:46 AM COOK HOUSE SUPERVISOR PROCALCITONIN STAT 10/20/2024 6:31 PM COOK HOUSE SUPERVISOR XR CHEST 2 VIEWS PA AND LATERAL STAT 10/20/2024 4:27 PM COOK HOUSE SUPERVISOR EKG 12 LEAD STAT 10/20/2024 4:12 PM COOK HOUSE SUPERVISOR EXTRA TUBE BLUE Today 10/20/2024 4:05 PM COOK HOUSE SUPERVISOR TSH MONA 10/20/2024 4:04 PM COOK HOUSE SUPERVISOR CBC W PLT NO DIFF STAT 10/20/2024 4:0 4 PM COOK HOUSE SUPERVISOR BASIC METABOLIC PANEL STAT 10/20/2024 4:04 PM COOK HOUSE SUPERVISOR LIPASE STAT 10/20/2024 4:04 PM COOK HOUSE SUPERVISOR HEPATIC FUNCTION PANEL STAT 10/20/2024 4:04 PM COOK HOUSE SUPERVISOR PRO-BNP STAT 10/20/2024 4:04 PM COOK HOUSE SUPERVISOR MAGNESIUM STAT 10/20/2024 4:04 PM COOK HOUSE SUPERVISOR XR DXA BONE DENSITY 2 SITES AXIAL Routine 09/22/2019 2:22 PM COOK HOUSE SUPERVISOR Post-menopausal from Last 3 Months or Most Recently Relevant to Health Maintenance Results * XR SPINE LUMBAR 2 VIEWS (01/04/2025 2:30 PM COOK HOUSE SUPERVISOR) Anatomical Region Laterality Modality LUMBAR SPINE Computed Radiogr aphy 01/05/2025 4:05 PM COOK HOUSE SUPERVISOR Narrative 01/05/2025 4:05 PM COOK HOUSE SUPERVISOR For Patients: As a result of the [...] VIEW W PELVIS RIGHT (01/04/2025 2:30 PM COOK HOUSE SUPERVISOR) Anatomical Region Laterality Modality HIPS, HIPR, Pelvis Computed Radi ography 01/05/2025 4:04 PM COOK HOUSE SUPERVISOR Narrative 01/05/2025 4:04 PM COOK HOUSE SUPERVISOR For Patients: As a result of the [...] of bilateral osteoarthrosis. End-stage joint space loss [id number] and large osteophytes right hip. Alignment remains [...] progression of bilateral osteoarthrosis. End-stage joint spaceloss [id number] and large osteophytes right hip. Alignment remainsanatomic. Severe arthrosis changes of the left hip. No acute or suspicious bone lesion. Atherosclerotic arterial calcification of the iliac arteries. Dictated by Néstor Gallegos MD @ 01/05/2025 4:04:03 PM (Electronically Signed) Souyma Quach DO GENERAL IMAGING Final Resul t * CT CHEST WO (12/12/2024 1:12 PM COOK HOUSE SUPERVISOR) Only the most recent of2 resultswithin the time period is included. Anatomical Region Laterality Modality CHEST, THORAX, HEART Computed To mography 12/12/2024 2:59 PM COOK HOUSE SUPERVISOR Narrative 12/12/2024 2:59 PM COOK HOUSE SUPERVISOR For Patients: As a result of the [...] VITAMIN D 25 (DEFICIENCY) (11/11/2024 12:47 PM COOK HOUSE SUPERVISOR) VITAMIN D,25-OH,TOTAL,IA 105(H) 30 - 100 ng/mL [employer] atiya Savage Comment: Vitamin D Status 25-OH Vitamin D: Deficiency: <20 ng/mL Insufficiency: 20 - 29 ng/mL Optimal: > or = 30 ng/mL For 25-OH Vitamin D testing on patients on D2-supplementation and patients for whom quantitation of D2 and D3 fractions is required, the QuestAssureD() 25-OH VIT D, (D2,D3), LC/MS/MS is recommended: order code 16887 (patients >2yrs). See Note 1 Note 1 For additional information, please refer to [email or web address] (This link is being provided for informational/ educational purposes only.) Blood BLOOD SPECIMEN / Unknown 11/11/2024 12:47 PM COOK HOUSE SUPERVISOR 11/11/2024 12:47 PM COOK HOUSE SUPERVISOR us Ling Thayer DO SEND OUTS Final Result [facility] [address] [place] [address], [facility] [address] [place] [address] * CBC AND DIFFERENTIAL (11/11/2024 12:47 PM COOK HOUSE SUPERVISOR) [facility] WHITE BLOOD CELL COUNT 6.1 3.8 - [...] BLOOD SPECIMEN / Unknown 11/11/2024 12:47 PM COOK HOUSE SUPERVISOR 11/11/2024 12:47 PM COOK HOUSE SUPERVISOR Ling Jennyfer Calderonjorje DO HEMATOLOGY Final Result [facility] [address] [place] [address], [place] [phone] [employer]Welda [address] [place] [address] * BASIC METABOLIC PANEL (11/11/2024 12:47 PM COOK HOUSE SUPERVISOR) Only the most recent of4 resultswithin the time period is included. [facility] GLUCOSE 84 65 - 99 mg/dL [facility] Comment: Fasting reference interval UREA [...] BLOOD SPECIMEN / Unknown 11/11/2024 12:47 PM COOK HOUSE SUPERVISOR 11/11/2024 12:47 PM COOK HOUSE SUPERVISOR Ling Calderonjorje DO CHEMISTRY Final Result [facility] [address] [place] [address], [place] [phone] [facility] [address] [place] [address] * CT CHEST W (10/23/2024 11:39 AM COOK HOUSE SUPERVISOR) Anatomical Region Laterality Modality CHEST, THORAX, HEART Computed To mography 10/23/2024 12:1 3 PM COOK HOUSE SUPERVISOR Narrative 10/23/2024 12:13 PM COOK HOUSE SUPERVISOR For Patients: As a result of the [...] DUAL CHAMBER WO REPROG (10/23/2024 10:47 AM COOK HOUSE SUPERVISOR) Narrative Haley Mane MD - 10/23/2024 10:47 AM Oneil Razo RN 10/23/2024 10:55 AM PACEMAKER EVALUATION REPORT October 23, 2024 Summary: Normal pacemaker function. Lead trends stable. 100% AT/AF. No VT detections. Last EF 55-60 % per Echo on 10/21/24. AP 0.1%, SOLUTION SPEC 100%. Battery estimating initializing years remaining. Indication for Pacemaker: Complete Heart Block - Post AV Node Ablation Primary MD: Soumya Quach DO Primary Manager Coding: Implanting MD: Dr. Mane DEVICE DATA Final Coat Sprayer Medtronic: Model Gisele XT DR DEIDRE Pan [id number] Implant Date 10/22/2024 LEAD DATA Atrial Lead: Final Coat Sprayer Medtronic: Model 5076 52 cm Implant Date 10/22/2024 RV Lead: Final Coat Sprayer Medtronic: Model 3830 69 cm Implant Date 10/22/2024 Advisory: None Location of evaluation: [facility], [facility] Reason for evaluation: Routine, 1st day post [...] of care as described. Patient was given [facility] business card and encouraged to call if she has any concerns or questions in the future. Pt was enrolled in Teliportme and a Relay monitor was paired. Follow up: 3 months in [place], 01/25/24 at 1:30 pm Routine follow up: 4 month [facility] (Relay monitor) with annual [place] in January. Signed By: Oneil Guardado RN, CCDS 10/23/2024 Haley Mane MD CARDIAC SERVICES ORD Final Result * EKG 12-Lead - In AM (10/23/2024 9:00 AM COOK HOUSE SUPERVISOR) Only the most recent of2 resultswithin the [...] NOW QTc 502 ms BEYOND NOW P Cornell 83 degrees BEYOND NOW R Cornell 61 degrees BEYOND NOW T Cornell 91 degrees BEYOND NOW 10/23/2024 9:00 AM COOK HOUSE SUPERVISOR 10/23/2024 3:41 PM COOK HOUSE SUPERVISOR Haley Mane MD EKG ORD Final Resul t BEYOND NOW [place], [place] * (ABNORMAL) WHITE BLOOD COUNT (10/23/2024 8:35 AM COOK HOUSE SUPERVISOR) Only the most recent of3 resultswithin the time period is included. WHITE BLOOD COUNT 11.3(H) 4.5 - 11.0 thou/cu mm 10/23/2024 9:01 AM COOK HOUSE SUPERVISOR [facility] NRBC 0.0 % 10/23/2024 9:01 AM COOK HOUSE SUPERVISOR [facility] ABS NRBC 0.0 thou /cu mm 10/23/2024 9:01 AM COOK HOUSE SUPERVISOR [facility] Blood BLOOD SPECIMEN / Unknown Venipuncture / Unknown 10/23/2024 8:35 AM COOK HOUSE SUPERVISOR 10/23/2024 8:46 AM COOK HOUSE SUPERVISOR Wen Salazar MD HEMATOLOGY Final Res ult Performing Organization Address [facility] Co de Phone Number [facility] [address] [address], [place] * MAGNESIUM (10/23/2024 8:35 AM COOK HOUSE SUPERVISOR) Only the most recent of4 resultswithin the time period is included. MAGNESIUM 2.0 1.6 - 2.4 mg/dL 10/23/2024 9:16 AM COOK HOUSE SUPERVISOR [facility] Blood BLOOD SPECIMEN / Unknown Venipuncture / Unknown 10/23/2024 8:35 AM COOK HOUSE SUPERVISOR 10/23/2024 8:46 AM COOK HOUSE SUPERVISOR Wen Salazar MD CHEMISTRY Final Res ult Performing Organization Address [facility] de Phone Number [facility] [address] [address], [place] * XR Chest PA and Lateral (10/23/2024 7:45 AM COOK HOUSE SUPERVISOR) Only the most recent of2 resultswithin the time period is included. Anatomical Region Laterality Modality CHEST, THORAX, Lung, HEART Digit al Radiography 10/23/2024 8:05 AM COOK HOUSE SUPERVISOR Impressions 10/23/2024 8:05 AM COOK HOUSE SUPERVISOR 1. Recommend chest CT with IV contrast to evaluate the left upper lobe consolidation/nodules. 2. No direct pacemaker placement complication seen. Dictated by Lakisha Walters MD @ Oct 23 2024 8:05AM (Electronically Signed) [email or web address] Narrative 10/23/2024 8:05 AM COOK HOUSE SUPERVISOR For Patients: As a result of the [...] @ Oct 23 2024 8:05AM (Electronically Signed) [email or web address] us Haley Mane MD GENERAL IMAGING Final Resul t * SCAN-CARDIAC STRIP (10/23/2024 7:01 AM COOK HOUSE SUPERVISOR) us Scanner OTHER Final Result * SCAN-CARDIAC STRIP (10/23/2024 1:19 AM COOK HOUSE SUPERVISOR) us Scanner OTHER Final Result * SCAN-CARDIAC STRIP (10/22/2024 8:04 PM COOK HOUSE SUPERVISOR) us Scanner OTHER Final Result * SCAN-CARDIAC STRIP (10/22/2024 2:58 PM COOK HOUSE SUPERVISOR) us Scanner OTHER Final Result * SCAN-CARDIAC STRIP (10/22/2024 12:05 PM COOK HOUSE SUPERVISOR) us Scanner OTHER Final Result * EP PPM (10/22/2024 9:59 AM COOK HOUSE SUPERVISOR) Anatomical Region Laterality Modality Other 10/22/2024 9:59 AM COOK HOUSE SUPERVISOR Narrative Transcriptions Haley Mane MD - 10/22/2024 10:48 AM CST [place] [facility] Electrophysiology Procedure/Implant Report Name: DAT GIL Event Date: 10/22/2024 [employer] ID #: [id number] Date: 1950 Gender: Female Age: 74 CHRISTOPHE #: [id number] Procedure Performed By: HALEY MANE [facility] Referring Physician: Summary / Conclusions PACEMAKER * Dual chamber pacemaker system successfully implanted. * Procedure completed without incident. * Appropriate device functionality observed at end of case. AV NODE ABLATION * Successful AV node ablation without escape rhythm. Recommendations / Plan Preoperative Diagnosis: AF/RVR Procedure: DDD PPM AVN RFA Findings/Conclusions: Successful DDD PPM implant under MAC LBBAP [id number]= 82ms Interpeak = 32ms QRS change below [...] AM Stop sotalol Stop Diltiazem May continue COURT STENOGRAPHER carvedilol EP Service to follow Pre-Operative Diagnosis [...] today. I haveanswered her questions. Consent & [place] Protocol [place] protocol was followed. TIME OUT conducted just [...] sensing parameters were recorded. There was LBBAP. [id number] = 82ms InterPeak = 32ms QRS morphology [...] Intervals Study State Underlying Rhythm Cycle Length NC PA AH HV QRS Cornell QRSMorphology Baseline Atrial Fibrillation 1048 Post Ablation [...] Thermocouple, D-F curveLeft Subclavian Map/Abl 8.5F Guide [place] Implantable Device Specifications Pulse Generator Detail Implanted Status Pocket Location Final Coat Sprayer Model Serial Number 10/22/2024 Implanted Left Pectoral [employer] [place] XT DR MRI [id number] Lead Detail Implanted Status Chamber Location Final Coat Sprayer Model Serial Number 10/22/2024 Implanted Right Ventricle Septum [employer] Secure [id number] 10/22/2024 Implanted Right Atrium Right Appendage [employer] Novus [id number] Measurement Sample Tester Grinder P/R Wave (mV) Threshold (V) Pulse Width [...] See Anesthesia Note Total Flouro Time: 2.7 A P MECHANIC Total Flouro Dose: 4.0 mGy Staff Name Role Richard Bailey RN Nurse [facility] EPT Monitor Soumya Zelaya NP Scrub [facility] EPT Auto PainterHaley Sanchez MD Medications Ordered and Administered Start Time Stop Time Medication Dose Units Route Ordered By Given By 09:59 0.25% Bupivicaine 20 mL Subcut MD Ines Quan, EPT 09:59 1% Lidocaine Hydrochloride 20 mL Subcut MD Huyen Quan, EPT 10:31 Ancef Irrigation 1 g None MD Soumya Quan, LEARNING SUPPORT TEACHER The anesthesia service monitored the patient?s conscious sedation duringthe procedure. The medications listed above were verbally ordered by me and read back tome as documented above. Refer to the hemodynamic procedure log report for additional casedetails. electronically signed on 10/22/2024 10:48:20 AM with status of Final Haley Mane MD Width Stripper [facility] [address] [place] [address] (p) [phone](f) us Haley Mane MD CV IMAGING Edited Resu lt - Final * SCAN-CARDIAC STRIP (10/22/2024 7:53 AM COOK HOUSE SUPERVISOR) us Scanner OTHER Final Result * POTASSIUM (10/21/2024 5:40 PM COOK HOUSE SUPERVISOR) Only the most recent of2 resultswithin the time period is included. Pathologist [facility] POTASSIUM 4.4 3.5 - 5.1 mmol/L 10/21/2024 6:26 PM COOK HOUSE SUPERVISOR [facility] Blood BLOOD SPECIMEN / Unknown Venipuncture / Unknown 10/21/2024 5:40 PM COOK HOUSE SUPERVISOR 10/21/2024 6:03 PM COOK HOUSE SUPERVISOR us Wen Salazar MD CHEMISTRY Final Res ult [facility] [address] [place] [address], * ECHO TTE COMPLETE W CONTRAST (10/21/2024 10:23 AM COOK HOUSE SUPERVISOR) AORTIC VALVE MEAN PG 2 mmHg PEAK TR VELOCITY 2.5 m/s LVEDD 4.1 cm EJECTION FRACTION 55 - 60% Anatomical Region Laterality Modality Ultrasound 10/21/2024 9:20 AM COOK HOUSE SUPERVISOR Narrative 10/21/2024 4:45 PM COOK HOUSE SUPERVISOR ECHOCARDIOGRAM DAT GIL : 1950 74 years Study Date: 10/21/2024 9:20:01 AM Gender: F BP: 139/87 mmHg Height: 173.00 cm BSA: 1.82 m Weight: 69.00 kg Tech: [place] Referring MD: QUIRINO DOVER Site: [facility] Reading Location: ANW IP Patient Location: Inpatient. [...] documentation: 2 ml diluted Definity, lot #[id number], [facility]# [id number] was administered peripherally to enhance visualization of all left ventricular segments. . This study was interpreted by an [facility] accredited facility. Final Procedure Note Jeff Niño MD - 10/21/2024 ECHOCARDIOGRAM DAT GIL : 1950 74 years Study Date: 10/21/2024 9:20:01 AM Gender: F BP: 139/87 mmHg Height: 173.00 cm BSA: 1.82 m Weight: 69.00 kg Tech: PHUONG Referring MD: QUIRINO DOVER Site: [facility] Reading Location: ANW Patient Location: Inpatient. Procedure: [...] documentation: 2 ml diluted Definity, lot #[id number], [facility]#[id number] was administered peripherally to enhance visualization of allleft ventricular segments. . This study was interpreted by an [facility] accredited facility. Final Quirino CASTORENA ECHO ORD Emily l Result * EXTRA TUBE BLUE (10/21/2024 7:46 AM COOK HOUSE SUPERVISOR) Only the most recent of2 resultswithin the time period is included. Blood BLOOD SPECIMEN / Unknown Extra Tube / Unknown 10/21/2024 7:46 AM COOK HOUSE SUPERVISOR 10/21/2024 8:00 AM COOK HOUSE SUPERVISOR Wen Salazar MD LABORATORY Final Res ult [facility] [address] [place] [address], * PLATELET COUNT (10/21/2024 7:46 AM COOK HOUSE SUPERVISOR) PLATELET COUNT 355 140 - 440 thou/cu mm 10/21/2024 8:01 AM COOK HOUSE SUPERVISOR [facility] MPV 10.1 6.5 - 11.0 fL 10/21/2024 8:01 AM COOK HOUSE SUPERVISOR [facility] Blood BLOOD SPECIMEN / Unknown Venipuncture / Unknown 10/21/2024 7:46 AM COOK HOUSE SUPERVISOR 10/21/2024 7:55 AM COOK HOUSE SUPERVISOR Quirino CASTORENA HEMATOLOGY Emily l Result [facility] [address] [address], [place] * HEMOGLOBIN (10/21/2024 7:46 AM COOK HOUSE SUPERVISOR) HEMOGLOBIN 12.3 12.0 - 16.0 g/dL 10/21/2024 8:01 AM COOK HOUSE SUPERVISOR [facility] MCV 92 80 - 100 fL 10/21/2024 8:01 AM COOK HOUSE SUPERVISOR [facility] Blood BLOOD SPECIMEN / Unknown Venipuncture / Unknown 10/21/2024 7:46 AM COOK HOUSE SUPERVISOR 10/21/2024 7:55 AM COOK HOUSE SUPERVISOR Quirino CASTORENA HEMATOLOGY Emily l Result Performing Organization Address [facility] Co de Phone Number [facility] [address] [address], [place] * (ABNORMAL) SODIUM (10/21/2024 7:46 AM COOK HOUSE SUPERVISOR) Pathologist [facility] SODIUM 131(L) 136 - 145 mmol/L 10/21/2024 8:21 AM COOK HOUSE SUPERVISOR [facility] Blood BLOOD SPECIMEN / Unknown Venipuncture / Unknown 10/21/2024 7:46 AM COOK HOUSE SUPERVISOR 10/21/2024 7:55 AM COOK HOUSE SUPERVISOR Quirino CASTORENA CHEMISTRY Emily l Result Performing Organization Address [facility] Co de Phone Number [facility] [address] [place] [address], [place] * (ABNORMAL) CREATININE (10/21/2024 7:46 AM COOK HOUSE SUPERVISOR) eGFR 87(L) >90 mL/min/1.7 3m2 10/21/2024 8:21 AM COOK HOUSE SUPERVISOR [facility] Comment:As of 2022, eG FR is calculated by the CKD-EPI creatinine equation without race adjustment. eGFR can be influenced by muscle mass, exercise, and diet. The reported eGFR is an estimation only and is only applicable if the renal function is stable. CREATININE 0.72 0.50 - 0.90 mg/dL 10/21/2024 8:21 AM COOK HOUSE SUPERVISOR [facility] Blood BLOOD SPECIMEN / Unknown Venipuncture / Unknown 10/21/2024 7:46 AM [employer] 10/21/2024 7:55 AM [employer]SE [employer]PER[employer] Quirino STEIN CHEMISTRY Emily l Result [facility] [address] [place] [address], [place] * PROCALCITONIN (10/20/2024 6:31 PM COOK HOUSE SUPERVISOR) PROCALCITONIN 0.16 ng/ml 10/20/2024 7:16 PM [employer]SE SUPER[employer]OR [facility] Blood BLOOD SPECIMEN / Unknown Non-Lab Venipuncture / Unknown 10/20/2024 6:31 PM [employer] HOUSE SUPERVISOR 10/20/2024 6:42 PM [employer] HOUSE SUPERVISOR Narrative [facility] - 10/20/2024 7:16 PM [employer] SUPER[employer]OR Procalcitonin for initial assessment of Lower Respiratory [...] SEND OUTS Final Result Performing Organization Address [facility] de Phone Number [facility] [address] [address], [place] * TSH (10/20/2024 4:04 PM C[employer]SE SUPERVISOR) TSH 1.78 0.27 - 4.20 uIU/mL 10/20/2024 5:17 PM [employer]OOK HOUSE SUPERVISOR [facility] Blood BLOOD SPECIMEN / Unknown Non-Lab Venipuncture / Unknown 10/20/2024 4:04 PM [employer] HOUSE SUPERVISOR 10/20/2024 4:14 PM [employer]OOK HOUSE SUPERVISOR [facility] - 10/20/2024 5:17 PM [employer]SE SUPERVISOR In Adults, TSH values between 5.00 and 10.00 uIU/ml do not necessarily indicate the presence of Hypothyroidism. Correlation with clinical findings such as presence of goiter and/or Thyroperoxidase (TPO) Antibody may be helpful. For more information please refer to DAVID 2004; 291: 228-238. Haley Collins MD CHEMISTRY Final Result Performing Organization Address [facility] Co de Phone Number [facility] [address] [place] [address], [place] * (ABNORMAL) CBC W PLT NO DIFF (10/20/2024 4:04 PM [employer]OOK [employer]SE SUPERVISOR) [facility] WHITE BLOOD COUNT 10.3 4.5 - 11.0 thou/cu mm 10/20/2024 4:19 PM [employer]OOK [employer]SE SUPERVISOR [facility] RED BLOOD COUNT 3.77(L) 4.00 - 5.20 mil/cu mm 10/20/2024 4:19 PM [employer]SE SUPERVISOR [facility] HEMOGLOBIN 11.4(L) 12.0 - 16.0 g/dL 10/20/2024 4:19 PM [employer]SE SUPER[employer] [facility] HEMATOCRIT 35.1 33.0 - 51.0 % 10/20/2024 4:19 PM [employer]SE SUPERVISOR [facility] MCV 93 80 - 100 fL 10/20/2024 4:19 PM [facility] MCH 30.2 26.0 - 34.0 pg 10/20/2024 4:19 PM [employer]SE SUPERVISOR [facility] MCHC 32.5 32.0 - 36.0 g/dL 10/20/2024 4:19 PM [employer]SE SUPERVISOR [facility] RDW 14.5 11.5 - 15.5 % 10/20/2024 4:19 PM [employer]SE SUPERVISOR [facility] PLATELET COUNT 360 140 - 440 thou/cu mm 10/20/2024 4:19 PM [employer]SE SUPERVISOR [facility] MPV 10.5 6.5 - 11.0 fL 10/20/2024 4:19 PM C[employer] HOUSE SUPERVISOR [facility] NRBC 0.0 % 10/20/2024 4:19 PM [employer]SE SUPERVISOR [facility] ABS NRBC 0.0 thou /cu mm 10/20/2024 4:19 PM [employer]SE SUPERVISOR [facility] Blood BLOOD SPECIMEN / Unknown Non-Lab Venipuncture / Unknown 10/20/2024 4:04 PM [employer]SE SUPERVISOR 10/20/2024 4:14 PM [employer]SE SUPER[employer]OR Haley Collins MD HEMATOLOGY Final Result [facility] [address] [place] [address], [place] * (ABNORMAL) PRO-BNP (10/20/2024 4:04 PM [employer]SE SUPERVISOR) PRO-BNP 7,438(H) <450 pg/mL 10/20/2024 4:55 PM [employer]SE SUPERVISOR [facility] Blood BLOOD SPECIMEN / Unknown Non-Lab Venipuncture / Unknown 10/20/2024 4:04 PM [employer]SE SUPERVISOR 10/20/2024 4:14 PM COOK [employer]SE SUPERVISOR [facility] - 10/20/2024 4:55 PM [employer]SE SUPERVISOR The following cut-points have been suggested for [...] Haley Collins MD SEND OUTS Final Result [facility] [address] [place] [address], [place] * LIPASE (10/20/2024 4:04 PM COOK [employer]SE SUPERVISOR) LIPASE 33.3 13.0 - 60.0 IU/L 10/20/2024 4:51 PM [employer]OOK HOUSE SUPERVISOR [facility] Blood BLOOD SPECIMEN / Unknown Non-Lab Venipuncture / Unknown 10/20/2024 4:04 PM [employer]OOK HOUSE SUPERVISOR 10/20/2024 4:14 PM [employer]SE SUPER[employer]OR us Haley Collins MD CHEMISTRY Final Result Performing Organization Address City/[facility]/ZIP Co de Phone Number [facility] [address] [place] [address], [place] * (ABNORMAL) HEPATIC FUNCTION PANEL (10/20/2024 4:04 PM COOK HOUSE SUPERVISOR) ALBUMIN 3.5(L) 4.0 - 4.9 g/dL 10/20/2024 4:51 PM COOK HOUSE SUPERVISOR [facility] PROTEIN,TOTAL 7.3 6.0 - 8.0 g/dL 10/20/2024 4:51 PM [employer] HOUSE SUPERVISOR [facility] BILIRUBIN,TOTAL 0.5 0.0 - 1.2 mg/dL 10/20/2024 4:51 PM [employer]OOK [employer]SE SUPERVISOR [facility] BILIRUBIN,DIRECT 0.2 0.0 - 0.2 mg/dL 10/20/2024 4:51 PM [employer]OOK [employer]SE SUPERVISOR [facility] BILIRUBIN,INDIRE CT 0.3 0.2 - 0.8 mg/dL 10/20/2024 4:51 PM [employer]OOK HOUSE SUPERVISOR [facility] ALK PHOSPHATASE 124(H) 35 - 104 IU/L 10/20/2024 4:51 PM COOK HOUSE SUPERVISOR [facility] ALT (SGPT) 235(H) 10 - 35 IU/L 10/20/2024 4:51 PM COOK HOUSE SUPERVISOR [facility] AST (SGOT) 228(H) 10 - 35 IU/L 10/20/2024 4:51 PM COOK HOUSE SUPERVISOR [facility] Blood BLOOD SPECIMEN / Unknown Non-Lab Venipuncture / Unknown 10/20/2024 4:04 PM COOK HOUSE SUPERVISOR 10/20/2024 4:14 PM [employer]SE SUPER[employer]OR us Haley Collins MD CHEMISTRY Final Result Performing Organization Address City/[facility]/ZIP Co de Phone Number [facility] [address] [place] [address], [place] * (ABNORMAL) XR DXA BONE DENSITY 2 SITES AXIAL (09/22/2019 2:22 PM COOK HOUSE SUPERVISOR) Anatomical Region Laterality Modality Spine, HIPS, HIPL, HIPR Other Narrative 09/28/2019 11:06 AM COOK [employer]SE SUPER[employer]OR Please see scanned document for results of this study. Soumya Quach DO DEXA Final Resul t from Last 3 Months or Most Recently Relevant to Health Maintenance Insurance MEDICARE PART B HB ONLY MEDICARE PB ONLY MEDICARE PART A HB ONLY [facility] PLUS MEDICARE PPS MEDICARE PPS Advance Directives Documents on File Type Date Recorded Patient Editor Magazine Expl anation Healthcare Directive 11/12/2023 4:27 PM [...] Code Status Discussion: Reviewed Preferences Care Teams Television Reporter Relationship Specialty Start Date End Date Soumya Quach [place] [address] PCP - General Family Practice 09/17/15 Dat Laura RN [address] [id number] Research Investigator - [facility] Registered Nurse 09/16/15 Lauren Rodriguez RN [facility] [address] Research Investigator - [facility] Registered Nurse 09/12/21 Alba Elizabeth, PharmD [address] [place] [id number] Pharmacist Medication Management Pharmacology 11/26/23
[2025-01-09 23:09] VITALS: O2SAT 99
[2025-01-09 23:11] LABS: C Reactive Protein* 1.3 mg/dL (0.5-1.0)
[2025-01-09 23:21] LABS: NT Pro B Type NatriureticPept* 7780 pg/mL
[2025-01-09 23:32] LABS: D Dimer Quantitative* 1.62 ug/ml (0.00-0.50)
--- NOTE | 2025-01-10 | CRLHL7_ITS ---
For Patients: As a result of the Century Cures Act, medical imaging exams and procedure reports are released immediately into your electronic medical record. You may view this report before your referring provider. If you have questions, please contact your health care provider. INDICATION: Shortness of for breath, elevated D-dimer TECHNIQUE: CT chest with and without i.v. contrast, scanned during the venous phase. Coronal and sagittal reformats were obtained. CONTRAST: 95 mL Isovue 370 COMPARISON: None FINDINGS: Cardiovascular: There is a left cardiac pacer present with leads in the right atrium and right ventricle. Moderate left ventricular enlargement and enlargement of bilateral atria are seen. The pulmonary arteries are unremarkable in appearance. No sign of aneurysm or dissection in the thoracic aorta. Mediastinum: No mass or adenopathy seen. Lung: Mild centrilobular emphysema is present. Nodular peripheral infiltrates are present in the left apex and can be due to chronic granulomatous disease. Pleura and pericardium: Moderate bilateral pleural effusions are present. No significant pericardial effusion is present. Chest wall and axilla: No mass or adenopathy seen. Bone: Unremarkable for age. Upper abdomen: Unremarkable. IMPRESSIONS: 1. Moderate bilateral pleural effusions are present. 2. Moderate left ventricular enlargement and enlargement of bilateral atria are seen. Dictated by Salvador Matamoros MD @ 01/10/2025 12:40:00 AM Please note that all CT scans at this facility use dose modulation, iterative reconstruction, and/or weight-based dosing when appropriate to reduce radiation dose to as low as reasonably achievable. Dictated by: Salvador Matamoros MD @ 01/10/2025 00:41:00 (Electronically Signed)
[2025-01-10] MEDS: FUROSEMIDE 10 MG/ML inj 40 MG IVP (00:36)
[2025-01-10 00:49] VITALS: BP 159/109; PULSE 94; RESP 16; O2SAT 94
== END 2025-01-10 01:38 | disposition home or self-care (01) ==
PROVIDERS: Emergency Provider Emergency Medicine; PCP Family Medicine
DX: I50.9 Heart failure, unspecified (principal)
CPT/HCPCS: 36415; 71045; 71275; 80048; 83880; 84484; 85025; 85379; 86140; 93005; 94761; 96374; 99284; 99285; J1940; Q9967

== ENCOUNTER 2025-01-10 01:41 | Outpatient (CLI) | payer MEDICARE, MEDICAID, SELFPAY | END 2025-01-10 01:42 | disposition home or self-care (01) | LOC: AMB 01-11 10:31 | PROVIDERS: PCP Family Medicine; Visit Provider Family Medicine | DX: I50.9 Heart failure, unspecified (principal); Z99.3 Dependence on wheelchair | CPT/HCPCS: A0425; A0428 ==

== ENCOUNTER 2025-03-01 16:01 | Outpatient (CLI) | payer MEDICARE, MEDICAID, SELFPAY | END 2025-03-01 16:02 | disposition home or self-care (01) | LOC: AMB 03-02 10:56 | PROVIDERS: PCP Family Medicine; Visit Provider Emergency Medicine Emergency Medical Services | DX: R07.89 Other chest pain (principal) | CPT/HCPCS: A0425; A0433 ==

== ENCOUNTER 2025-03-01 16:28 | Emergency (ER) | payer MEDICARE, MEDICAID, SELFPAY ==
[2025-03-01] VITALS (19 sets, daily range): BP systolic 128–195; BP diastolic 85–107; PULSE 69–98; RESP 15–20; TEMP 36.3; O2SAT 93–99; BMI 22.2
--- OUTSIDE RECORDS SUMMARY | 2025-03-01 16:31 | XMS_ITS | Clinical Summary ---
Author Organization [facility] Address [address] [place] [address] Care Team Providers Care Accounting Technician Name Role Phone Soumya Quach DO Primary Care Provider Gavi Laura RN Unavailable [phone] Lauren Rodriguez RN Unavailable [phone] Alba Elizabeth PharmD Unavailable [phone] Allergies Active Allergy Reactions Criticality Noted Date [...] mg by mouth two times daily. Active [id number] kimberly Oil (Fish OiL) 1,000 mg (120 mg-180 [...] Active aspirin enteric coated (ECOTRIN) 325 mg tabletIndications :Osteoarthritis, unspecified osteoarthritis type, unspecified site Take 2 Tablets (650 mg) by mouth every 4 hours if needed for Pain. Takes 8 tablets total daily for her arthritis pain. Hold x 5 days post-pacemaker implant, ok to resume on 10/28/2024 10/28/20 24 Active rOPINIRole (REQUIP) 0.25 mg tabletIndications :RLS (restless legs syndrome) Take 2 tablets in am and 1 tablet in afternoon and 2 tablets at bedtime. 360 Tablet 3 10/26/20 24 Active albuterol HFA (Proventil HFA) 90 mcg/actuation inhalerIndication s:Cough, unspecified type,Shortness of breath,COVID-19,C hronic obstructive pulmonary disease, unspecified COPD type (HC) [...] by mouth once daily. 01/03/20 25 Active atenoloL (TENORMIN) 50 mg tabletIndications :HTN (hypertension) Take 1-2 Tablets (50-100 mg) by mouth once daily. 90 Tablet 3 01/11/20 25 Active torsemide 10 mg tabletIndications :Heart failure with preserved ejection fraction, unspecified HF chronicity (HC) Take 1 Tablet (10 mg) by mouth two times daily. Take 1 tablet by mouth twice daily on odd number days of month and 2 tablets twice daily on even number days of month. 270 Tablet 1 02/03/20 25 Active torsemide (DEMADEX) 10 mg tabletIndications :Heart failure with preserved ejection fraction, unspecified HF chronicity (HC) Take 1 Tablet (10 mg) by mouth two times daily. Increase to 20mg bid if needed for weight gain >3 lbs in 24 hours or increased swelling or shortness of breath. 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 03/28/2024 (HFpEF) heart failure with preserved ejection fr action 10/14/2023 Atrial fibrillation with RVR 10/08/2023 Primary osteoarthritis of right hip 06/26/2023 Acute appendicitis 06/14/2023 Kidney lesion, [place], right 06/14/2023 Stress incontinence, female 03/02/2023 Balance [...] Encounters Date Type Department Care Team Description 01/23/2025 4:00 PM CDT Orders Only [facility] [address] [place] [address] Lab, [place] [facility] 01/23/2025 3:30 PM CDT Ancillary Procedure [facility] [address] [place] [address] 01/23/2025 Travel 01/11/2025 2:40 PM ROCKET SCIENTIST Office Visit [facility] [address] [facility] [address] Soumya Quach, Blood Pressure; Imaging (go over xrays) 01/11/2025 Travel 01/10/2025 Telephone [facility] [address] [facility] [address] [place] [address] Talita Marcos, GREGORY Device Check (Unscheduled remote transmission) 01/10/2025 Orders Only [facility] Scanner 1 scan: (1-Ord) KANDI, CT ANGIO CHEST PE PROTOCOL, 01/10/2025 01/09/2025 Orders Only [facility] Scanner 1 scan: (1-Ord) KANDI, XR CHEST 1V PORTABLE, 01/09/2025 01/04/2025 3:00 PM ROCKET SCIENTIST Ancillary Procedure [facility] [address] [facility] [address] 01/04/2025 2:30 PM ROCKET SCIENTIST Ancillary Procedure [facility] [address] [place] [address] 01/04/2025 Travel 01/03/2025 2:00 PM ROCKET SCIENTIST Pharmacist Medication Management [facility] [address] [place] [address] Alba Elizabeth, PharmD Pharmacist Medication Management (Initial Comprehensive Medication Review - Phone Visit ) 12/12/2024 3:05 PM ROCKET SCIENTIST Office Visit [facility] [address] [place] [address] Soumya Quach, Medication Management (eliquis, carvedilol, losartan ) 12/12/2024 1:00 PM ROCKET SCIENTIST Ancillary Procedure [facility] [address] [place] [address] 12/12/2024 Travel 12/08/2024 2:50 PM ROCKET SCIENTIST Telemedicine [facility] [address] [place] [address] Lauren Patel NP Side Effect; Telehealth 12/08/2024 Travel 12/07/2024 Travel 12/05/2024 Patient Outreach [facility] Care Management - Care Management Navigation[facility] [address] [place] [address] Judy Maynard Medication Management (CMR - Covered - ACO) from Last 3 Months Immunizations Immunization Administration Dates Next Due Hepatitis B (Adult) [...] on file Legal Sex Female 6:29 AM ROCKET SCIENTIST Gender Identity Not on file Sexual Orientation Not on file Obstetrics History Para Term AB IAB SAB Ectopic Multiple Livin g Live Births 6 6 6 6 Date Outcome GA Total Labor Labor/2nd/3rd Weight Sex Type Anes PTL Jennyfer A1 A5 Name Clin Term Term Term Term Term Term Last Filed Vital Signs Vital Sign Reading Time Taken Comments Blood Pressure 120/75 01/11/2025 3:01 PM ROCKET SCIENTIST Pulse 94 01/11/2025 2:57 PM ROCKET SCIENTIST Temperature 36.4 C (97.5 F) 10/23/2024 2:12 PM ROCKET SCIENTIST Respiratory Rate 16 10/23/2024 2:12 PM ROCKET SCIENTIST Oxygen Saturation 95% 01/11/2025 2:57 PM ROCKET SCIENTIST Inhaled Oxygen Concentration - - Weight 66.7 kg (147 lb) 01/11/2025 2:57 PM ROCKET SCIENTIST Height 172.7 cm (5' 8) 10/20/2024 3:54 PM ROCKET SCIENTIST Body Mass Index 22.35 10/20/2024 3:54 PM ROCKET SCIENTIST Plan of Treatment Upcoming Encounters Date Type Department Care Team (Late st Contact Info) Description 05/26/2025 Cardiac Device Check TV Volume Wizard App [facility] [place] [phone] Health Maintenance Due Date Last Done Comments COVID-19 vaccine series (#1) 1955 Hepatitis C screening for ag e 18-09[birth year]27/1966 Zoster (shingles) series for age 50+ (1 of 2) 1967 Pneumococcal series for age 50+ (2 of 2 - PCV) 11/01/1998 11/01/1997 Tetanus booster 08/23/2018 08/23/2008, 12/09/1996 RSV vaccine for adults or (1 - 1-dose 75+ series) 2023 BMI (ht and wt on same day) for age 18+ 06/26/2024 06/26/2023, 09/21/2020, 09/19/2019, Additional history exists Influenza Vaccine (Season Ended) 2025 08/23/2013, 09/07/2012, 08/28/2011, Additional history exists Depression screening for age 12+ 07/25/2025 07/25/2024, 07/25/2024, 06/26/2023, Additional history exists Medicare Wellness for age 65+ 07/26/2025, 06/26/2023, 09/26/2021, Additional history exists Tdap Completed 08/23/2008 DEXA/DXA scan for age 65+ Completed 2024, 09/22/2019, 08/28/2011, Additional history exists Procedures Procedure Name Priority Date/Time Associated Diagnosis Comments PRO-BNP Routine 01/23/2025 4:00 PM CDT Heart failure with preserved ejection fraction, unspecified HF chronicity (HC) BASIC METABOLIC PANEL Routine 01/23/2025 4:00 PM CDT Heart failure with preserved ejection fraction, unspecified HF chronicity (HC) HTN (hypertension) XR DXA BONE DENSITY 2 SITES AXIAL Routine 01/23/2025 3:57 PM CDT Post-menopausal SCAN-CT INTERPRETATION 12:00 AM ROCKET SCIENTIST SCAN-RADIOLOGY REPORT 01/09/2025 12:00 AM ROCKET SCIENTIST XR SPINE LUMBAR 2 VIEWS Routine 01/04/2025 2:30 PM ROCKET SCIENTIST Chronic midline low back pain with right-sided sciatica XR HIP 1 VIEW W PELVIS RIGHT Routine 01/04/2025 2:30 PM ROCKET SCIENTIST Primary osteoarthritis of right hip CT CHEST WO Routine 12/12/2024 1:12 PM ROCKET SCIENTIST Squamous cell cancer of tongue (HC) Abnormal CT scan of lung from Last 3 Months Results * (ABNORMAL) PRO-BNP (01/23/2025 4:00 PM CDT) NT PROBNP 4,524(H) <450 pg/mL [facility] Blood BLOOD SPECIMEN / Unknown 01/23/2025 4:00 PM CDT 01/23/2025 4:00 PM CDT Soumya Quach DO SEND OUTS Final Resul t [facility] [address] [facility] [place] [address], [employer] [address] [place] [address] * (ABNORMAL) BASIC METABOLIC PANEL (01/23/2025 4:00 PM CDT) GLUCOSE 83 65 - 99 mg/dL [facility] Comment: Fasting reference interval UREA NITROGEN (BUN) 24 7 - 25 mg/dL [facility] CREATININE 1.18(H) 0.60 - 1.00 mg/dL [facility] EGFR 48(L) > OR = 60 mL/min/1.7 3m2 [facility] BUN/CREATININE RATIO 20 6 - 22 (calc) [facility] SODIUM 143 135 - 146 mmol/L [facility] POTASSIUM 4.1 3.5 - 5.3 mmol/L [facility] CHLORIDE 101 98 - 110 mmol/L [facility] CARBON DIOXIDE 30 20 - 32 mmol/L [facility] ELECTROLYTE BALANCE 12 7 - 17 mmol/L (calc) [facility] CALCIUM 9.7 8.6 - 10.4 mg/dL [facility] Blood BLOOD SPECIMEN / Unknown 01/23/2025 4:00 PM CDT 01/23/2025 4:00 PM CDT us Soumya Guzmánt DO CHEMISTRY Final Resul t [facility] [place] [id number] [place] [address], [employer] [address] * (ABNORMAL) XR DXA BONE DENSITY 2 SITES AXIAL (01/23/2025 3:57 PM CDT) Anatomical Region Laterality Modality Spine, HIPS, HIPL, HIPR Other Impressions 01/24/2025 12:54 PM CDT Osteopenia. RECOMMENDATIONS: The National Osteoporosis Foundation recommends pharmacologic treatment for patients with T-scores of -2.5 or less, patients with prior history of fragility fractures, or patients with 10-year probability of greater than 3% at hips or greater than 20% of suffering major osteoporotic fractures. Recommend continued optimization of calcium and vitamin D intake through dietary means and/or supplementation and regular exercise. Repeat scan recommended in 3-5 years. Nallely Swan PA-C [facility] 01/24/2025 Narrative 01/24/2025 12:54 PM CDT For Patients: Results are automatically released to your TV Volume Wizard App (VR1) account once available, in compliance with federal regulations. This means that you may see your results before your provider has had a chance to review them. Please allow 2-3 business days for your provider to comment on the results. XR DXA Bone Mineral Density (BMD) EXAM LOCATION: [facility] [address] [facility] [address] PATIENT NAME: Gavi Gil DATE OF : 1950 EXAM DATE: 01/23/2025 REQUESTING PROVIDER: Soumya Quach DO GENDER AT : female HEIGHT: 5' 8 (10/20/2024) WEIGHT: 147 lb (01/11/2025) MENOPAUSAL STATUS: Postmenopausal RACE/ETHNICITY: White RISK FACTORS: Smoking (prior) and White Race CURRENT MEDICATION FOR BONE LOSS: NONE INDICATION: Post-Menopause COMPARISON DATE(S): 2018 DXA scans are compared to prior studies for a patient only when the two (or more) studies were performed on the same scanner. It is not possible to compare data generated on one scanner to data from another because there are not standards in DXA equipment. This applies even if the two scanners are made by the same physics technical officer. PROCEDURE: Dual-energy x-ray absorptiometry performed with routine technique. Reporting is completed in the form of a T-score. The T-score represents the standard deviation from peak bone mass based on young healthy adult. A Z-score is used for diagnosis in premenopausal women, and for men under the age of 50. FINDINGS: RESULT LUMBAR SPINE L1 - L4 BMD: 1.043 g/cm2 T-Score: - 1.2 Z-Score: + 0.5 Change from prior in 2019: Decrease 2.6%. RESULTS FEMUR Left femoral neck BMD: 1.022 g/cm2 T-Score: - 0.1 Z-Score: + 1.8 Change from prior in 2019: Decrease 7.4%. Right femoral neck BMD: 0.873 g/cm2 T-Score: - 1.2 Z-Score: + 0.7 Change from prior in 2019: Decrease 5.9%. Left hip BMD: 0.944 g/cm2 T-Score: - 0.5 Z-Score: + 1.3 Change from prior in 2019: Decrease 7.1%. Right hip BMD: 0.807 g/cm2 T-Score: - 1.6 Z-Score: + 0.2 Change from prior in 2019: Decrease 9.7%. WHO criteria: Normal: T-score at or above -1 SD Osteopenia: T-score between -1.1 and -2.4 SD Osteoporosis: T-score at or below -2.5 SD FRAX RISK CALCULATION (USED FOR OSTEOPENIA ONLY): 10-year probability of major osteoporotic fracture: 9.9%. 10-year probability of hip fracture: 1.9%. us Soumya Quach DO DEXA Final Resul t * SCAN-CT INTERPRETATION (01/10/2025 12:00 AM ROCKET SCIENTIST) Anatomical Region Laterality Modality Other us Scanner OTHER Final Result * SCAN-RADIOLOGY REPORT (01/09/2025 12:00 AM ROCKET SCIENTIST) Anatomical Region Laterality Modality Other us Scanner OTHER Final Result * XR SPINE LUMBAR 2 VIEWS (01/04/2025 2:30 PM ROCKET SCIENTIST) Anatomical Region Laterality Modality LUMBAR SPINE Computed Radiogr aphy 01/05/2025 4:05 PM ROCKET SCIENTIST Narrative 01/05/2025 4:05 PM ROCKET SCIENTIST For Patients: As a result of the [...] MD @ 01/05/2025 4:05:56 PM (Electronically Signed) us Soumya Quach DO GENERAL IMAGING Final Resul t * XR HIP 1 VIEW W PELVIS RIGHT (01/04/2025 2:30 PM ROCKET SCIENTIST) Anatomical Region Laterality Modality HIPS, HIPR, Pelvis Computed Radi ography 01/05/2025 4:04 PM ROCKET SCIENTIST Narrative 01/05/2025 4:04 PM ROCKET SCIENTIST For Patients: As a result of the [...] of bilateral osteoarthrosis. End-stage joint space loss [id number] and large osteophytes right hip. Alignment remains [...] progression of bilateral osteoarthrosis. End-stage joint spaceloss [id number] and large osteophytes right hip. Alignment remainsanatomic. Severe arthrosis changes of the left hip. No acute or suspicious bone lesion. Atherosclerotic arterial calcification of the iliac arteries. Dictated by Néstor Gallegos MD @ 01/05/2025 4:04:03 PM (Electronically Signed) us Soumya Quach DO GENERAL IMAGING Final Resul t * CT CHEST WO (12/12/2024 1:12 PM ROCKET SCIENTIST) Anatomical Region Laterality Modality CHEST, THORAX, HEART Computed To mography 12/12/2024 2:59 PM ROCKET SCIENTIST Narrative 12/12/2024 2:59 PM ROCKET SCIENTIST For Patients: As a result of the [...] result of the Century Cures Act, medical imagingexams and procedure [...] @ 12/12/2024 2:59:05 PM (Electronically Signed) Soumya Guzmánruel DO CT Final Resul t from Last 3 Months Insurance MEDICARE PART B HB ONLY MEDICARE PB ONLY MEDICARE PART A HB ONLY [facility] PLUS MEDICARE PPS MEDICARE PPS Advance Directives Documents on File Type Date Recorded Patient Equipment Maintenance Tech Expl anation Healthcare Directive 11/12/2023 4:27 PM H EALTH CARE DIRECTIVE ACH NFLD 11/12/23 * Full [...] Code Status Discussion: Reviewed Preferences Care Teams Accounting Technician Relationship Specialty Start Date End Date Soumya Quach DO [address] [place] [address] PCP - General Family Practice 09/17/15 Gavi Laura RN [address] [address] Slip Cover Sewer - [facility] Registered Nurse 09/16/15 Lauren Rodriguez RN [address] [address] [employer] Cover [employer] - [facility] Registered Nurse 09/12/21 Alba Elizabeth, PharmD [address] [place] [address] Pharmacist Medication Management Pharmacology 11/26/23
--- NOTE | 2025-03-01 17:06 | ED_ITS ---
HPI - General Adult General Chief complaint: Chest Pain Stated complaint: Chest Pain Time Seen by Provider: 03/01/25 16:32 History of Present Illness HPI narrative: brought to ed via co ems. lives alone in her own apartment. has had vague upper abd discomfort -below her breastbone. today developed uper abd lower chest burning sensation after she had taken her vitamins- the vitamin C set it off. color is pale and this feeling comes and goes. feels that burping does relieve the pressure. has # 20 in the lac. bs was 241. ems gave 4 mg Zofran and 324 mg asa. 74-year-old woman presenting to the emergency department with concern of chest pain. No shortness of breath. Has been feeling firmness in her upper abdomen. Has not been vomiting or complaining of nausea. Was suggested to her on the way over here however that she might be obstructed. She does say that has been a few days since she has had a bowel movement she really could use one. Sounds like has had similar burning discomfort before. Sometimes settled down with meal. She also later tells me how she has ?lots of Tums? at home. No unusually dark stools or diarrhea. Related Data Home Medications ?Medication ?Instructions ?Recorded ?Confirmed apixaban 5 mg tablet (Eliquis) 5 mg PO BID 11/14/23 01/09/25 aspirin 81 mg tablet,delayed 81 mg PO QDAY 11/14/23 01/09/25 release (Adult Aspirin Regimen) torsemide 20 mg tablet 20 mg PO DAILY 11/14/23 01/09/25 albuterol sulfate 90 mcg/actuation 2 puff inhalation QID PRN dyspnea 01/09/25 01/09/25 aerosol inhaler losartan 50 mg tablet mg 01/09/25 Allergies Allergy/AdvReac Type Severity Reaction Status Date / Time amitriptyline Allergy Verified 01/09/25 22:30 bupropion (From Wellbutrin) Allergy Verified 11/14/23 09:46 celecoxib (From Celebrex) Allergy Verified 11/14/23 09:46 cerivastatin (From Baycol) Allergy Verified 11/14/23 09:46 citalopram (From Celexa) Allergy Verified 11/14/23 09:46 enalapril Allergy Verified 11/14/23 09:46 etodolac Allergy Verified 01/09/25 22:30 glucosamine Allergy Verified 11/14/23 09:46 hydroxychloroquine Allergy Verified 01/09/25 22:30 ibuprofen Allergy Verified 11/14/23 09:46 lisinopril Allergy Verified 11/14/23 09:46 simvastatin (From Zocor) Allergy Verified 11/14/23 09:46 apixaban (From Eliquis) AdvReac Verified 01/09/25 22:30 Review of Systems Status of ROS: Reports: 6 or more systems reviewed and unremarkable except as noted in History and below PFSH PFS Social History Smoking Status: Former smoker What tobacco products do you use: cigarettes Smoking quit date/years: >15 years ago Do you use any of these nicotine containing products: None Second hand tobacco smoke exposure: No How often do you have a drink containing alcohol: never How often do you have six or more drinks on one occasion: Never AUDIT-C Alcohol total score: 0 Non-prescribed substance use: denies use service: No Exam Narrative: Exam Narrative: Pleasant. Facial tics or movements. Mildly tender in the upper mid abdomen firm. No masses. Breathing easily. Lungs are clear. Heart in regular rate and rhythm. Stockings on the lower extremities with trace edema. Const: Vital Signs, click to edit/add: Vital Signs - 24 hr 03/01/25 16:35 03/01/25 16:40 03/01/25 16:41 Temperature 97.3 F L Pulse Rate 71 71 Pulse Rate [Apical ] 70 Respiratory Rate 18 Blood Pressure 182/85 H Blood Pressure [Ri ght Upper Arm] 128/85 Pulse Oximetry 94 96 93 Oxygen Delivery Me thod Room Air 03/01/25 16:45 03/01/25 17:00 03/01/25 17:02 Temperature Pulse Rate 72 70 70 Pulse Rate [Apical ] Respiratory Rate Blood Pressure 170/105 H Blood Pressure [Ri ght Upper Arm] Pulse Oximetry 94 96 95 Oxygen Delivery Me thod 03/01/25 17:03 03/01/25 17:15 03/01/25 17:40 Temperature Pulse Rate 70 70 98 Pulse Rate [Apical ] Respiratory Rate 18 Blood Pressure Blood Pressure [Ri ght Upper Arm] Pulse Oximetry 95 96 96 Oxygen Delivery Me thod 03/01/25 17:45 03/01/25 18:00 03/01/25 18:02 Temperature Pulse Rate 75 71 70 Pulse Rate [Apical ] Respiratory Rate 15 Blood Pressure 175/103 H Blood Pressure [Ri ght Upper Arm] Pulse Oximetry 97 98 99 Oxygen Delivery Me thod 03/01/25 18:15 03/01/25 18:30 03/01/25 18:32 Temperature Pulse Rate 74 73 72 Pulse Rate [Apical ] Respiratory Rate 19 Blood Pressure 187/104 H Blood Pressure [Ri ght Upper Arm] Pulse Oximetry 98 96 95 Oxygen Delivery Me thod 03/01/25 18:45 03/01/25 19:15 Temperature Pulse Rate 69 70 Pulse Rate [Apical ] Respiratory Rate 20 Blood Pressure Blood Pressure [Ri ght Upper Arm] Pulse Oximetry 95 97 Oxygen Delivery Me thod Documenting provider has reviewed patient's vital signs: yes Course Vital Signs Vital signs: Initial Vital Signs Temperature 97.3 F L 03/01/25 16:35 Temperature Source Temporal Artery Scan 03/01/25 16:35 Pulse Rate 70 03/01/25 16:35 Pulse Rhythm Regular 03/01/25 16:35 Respiratory Rate 18 03/01/25 16:35 Blood Pressure 128/85 03/01/25 16:35 Blood Pressure Mean 99 03/01/25 16:35 Blood Pressure Position Semi-Fowlers 03/01/25 16:35 Pulse Oximetry 94 03/01/25 16:35 Oxygen Delivery Method Room Air 03/01/25 16:35 Vital Signs Temperature 97.3 F L 03/01/25 16:35 Pulse Rate 70 03/01/25 16:35 Respiratory Rate 18 03/01/25 16:35 Blood Pressure 128/85 03/01/25 16:35 Pulse Oximetry 94 03/01/25 16:35 Oxygen Delivery Method Room Air 03/01/25 16:35 Temperature 97.3 F L 03/01/25 16:35 Pulse Rate 70 03/01/25 19:15 Respiratory Rate 20 03/01/25 19:15 Blood Pressure 187/104 H 03/01/25 18:32 Pulse Oximetry 97 03/01/25 19:15 Oxygen Delivery Method Room Air 03/01/25 16:35 Medications Administered Medications: Discontinued Medications Generic Name Dose Route Start Last Admin Trade Name Freq PRN Reason Stop Dose Admin Famotidine 20 mg 03/01/25 19:13 03/01/25 19:18 Famotidine 20 Mg Tablet PO 03/01/25 19:14 20 mg ONCE ONE Administration Lidocaine/Aluminum/Magnesium/Simeth 30 ml 03/01/25 17:20 03/01/25 18:18 Gi Cocktail (Visc Lido/Antacid) 30 Ml PO 03/01/25 17:21 30 ml ONCE ONE Administration Medical Decision Making MDM Narrative Medical decision making narrative: Checking blood for indication of cardiac injury and 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 Ordered for GI cocktail due to burning discomfort that she has been describing and timing with medication ingestion. Certainly could be typical heartburn or gallbladder disease. Does not seem typical for pancreatitis. Ulcer? She did not want to take GI cocktail noting that would numb her stomach as I had discussed noting that she had a flare of lower sternal area burning pain instead. Encouraged again to still take GI cocktail. Effect pending. On reassessment is markedly improved. Requested some water which then started to flare her discomfort a little bit more. Overall still improved Labs were reassuring. Abdominal x-ray independently reviewed by me with nonspecific bowel pattern. Colonic stool present but not excessive. No evidence of pneumomediastinum though entire mediastinum certainly not visualized. Pacer leads are visualized Radiology over-read also noting severe hip arthritis No events on teacher learning disabled during time of observation See patient discharge plan for further discussion Try not to take your pills/vitamins on an empty stomach unless they are specifically prescribed that way. For flares of discomfort like this consider taking liquid antacid/anti-gas medication. You might also try an uisw-jwy-bxnzbyb medicine called famotidine. Take this daily or twice daily for 2 weeks and reassess. I know you did not want me to prescribe anything today. Return for marked increase in persistent pain particularly accompanied by shortness of breath. Consider following up with your primary care provider to discuss further evaluation and/or treatment for the discomfort you felt today. Can take MiraLax equivalent dosed 1-3 doses daily and adjusting for stool consistency over the next week or 2. Each dose should be diluted in at least 8 oz of liquid. You might also try the Colace you mentioned. Lab Data Lab results reviewed: Yes I reviewed the patient's lab results Labs: Lab Results 03/01/25 03/01/25 Range/Units 17:20 17:21 Hgb 15.8 (12.0-16.0) gm/dL POC Troponin I 0.02 (0.01-0.04) ng/ml ECG Data Attestation: I personally reviewed and interpreted this ECG as follows: (Paced -- ventricular. Rate of 72. No apparent ischemic changes.) Discharge Plan Discharge Clinical Impression: Heartburn Patient Disposition: Home w/ Parent or Adult Condition: Improved Additional Instructions: Try not to take your pills/vitamins on an empty stomach unless they are specifically prescribed that way. For flares of discomfort like this consider taking liquid antacid/anti-gas medication. You might also try an kfjc-sox-nuysval medicine called famotidine. Take this daily or twice daily for 2 weeks and reassess. I know you did not want me to prescribe anything today. Return for marked increase in persistent pain particularly accompanied by shortness of breath. Consider following up with your primary care provider to discuss further vince luation and/or treatment for the discomfort you felt today. Can take MiraLax equivalent dosed 1-3 doses daily and adjusting for stool consistency over the next week or 2. Each dose should be diluted in at least 8 oz of liquid. You might also try the Colace you mentioned. Prescriptions: No Action torsemide 20 mg tablet 20 mg PO DAILY Eliquis 5 mg tablet 5 mg PO BID aspirin [Adult Aspirin Regimen] 81 mg tablet,delayed release (DR/EC) 81 mg PO QDAY losartan 50 mg tablet Patient Comments: TAKE 2 TABLETS (100 MG) BY MOUTH ONCE DAILY. albuterol sulfate 90 mcg/actuation HFA aerosol inhaler 2 puff INHALATION QID PRN (Reason: dyspnea) Follow Up/Referrals: Soumya Quach DO [Primary Care Provider] - Stand Alone Forms: [facility] Info Instructions
--- NOTE | 2025-03-01 17:20 | CRLHL7_ITS ---
For Patients: As a result of the Century Cures Act, medical imaging exams and procedure reports are released immediately into your electronic medical record. You may view this report before your referring provider. If you have questions, please contact your health care provider. Indication: Upper abdominal pain. Technique: Abdomen 2 view. Comparison: None. Findings/Impression: Bowel: Nonspecific bowel pattern with more than the usual amount of bowel gas. Bowel pattern does not appear obstructive. The amount of colonic stool is within normal limits. No signs of isabel constipation. Soft tissues: No sign of free air. No sign of soft tissue mass. No suspicious calcifications. Bones: Very severe right hip joint arthritis. Severe left hip joint arthritis. Dictated by Flaco Butler MD @ 03/01/2025 6:26:03 PM (Electronically Signed)
[2025-03-01 17:57] LABS: Hemoglobin* 15.8 gm/dL (12.0-16.0)
[2025-03-01 17:59] LABS: Troponin, Point-of-Care* 0.02 ng/ml (0.01-0.04)
[2025-03-01] MEDS: GI COCKTAIL (VISC LIDO/ANTACID) 30 ML PO (18:18)
[2025-03-01] MEDS: FAMOTIDINE 20 MG TABLET PO (19:18)
== END 2025-03-01 19:54 | disposition home or self-care (01) ==
PROVIDERS: Emergency Provider Family Medicine; PCP Family Medicine
DX: K21.9 Gastro-esophageal reflux disease without esophagitis (principal); R10.9 Unspecified abdominal pain
CPT/HCPCS: 36415; 74018; 84484; 85018; 93005; 99284; A9270